=== PATIENT | male | born 1940 | race Caucasian/White ===

== ENCOUNTER 2025-02-18 05:26 | Inpatient (IN) ==
[2025-02-18] MEDS: LIDOCAINE 1%/EPINEPHRINE 1:100,000 50 ML VIAL ONE (05:40)
[2025-02-18 06:07] LABS: Hematocrit (blood only) 26.1 % (42.0-52.0); Hemoglobin 8.5 g/dl (14.0-18.0); Mean Corpuscular Hemoglobin 33.9 pg (25.0-34.0); Mean Corpuscular Hgb Conc 32.6 g/dL (32.0-36.0); RDW Coefficient of Variation 17.2 % (11.5-14.5); RDW Standard Deviation 65.1 fL (36.4-46.3); Red Blood Count 2.51 M/uL (4.70-6.10); White Blood Count 9.15 K/ul (4.8-10.8)
[2025-02-18 06:08] LABS: Basophils # (auto) 0.03 K/uL (0.00-0.20); Basophils % (auto) 0.3 %; Eosinophils # (auto) 0.12 K/uL (0.00-0.50); Eosinophils % (auto) 1.3 %; Immature Granulocytes # (auto) 0.14 K/uL (0.01-0.20); Immature Granulocytes % (auto) 1.5 %; Lymphocytes # (auto) 1.29 K/uL (1.20-3.40); Lymphocytes % (auto) 14.1 %; Mean Platelet Volume 8.8 fL (9.4-12.4); Monocytes # (auto) 1.76 K/uL (0.11-0.59); Monocytes % (auto) 19.2 %; Neutrophils # (auto) 5.81 K/uL (1.40-6.50); Neutrophils % (auto) 63.6 %; Platelet Count 341 K/uL (130-400)
[2025-02-18 06:19] LABS: Albumin Globulin Ratio 1.3 (0.9-2); Albumin Level 3.9 gm/dl (3.4-5.0); Bilirubin,Total 1.1 mg/dl (0.2-1.0); Calcium 9.1 mg/dl (8.6-10.3); Creatinine Clr Calc Pharmacy 37.9 ml/min; Globulin 3.1 gm/dl (2.5-4.0); Potassium 4.2 mmol/L (3.5-5.1)
--- NOTE | 2025-02-18 06:35 | Emergency Department Note ---
Impression & Plan CHI (closed head injury), Complex laceration of scalp, Acute hemorrhage, Left shoulder strain, Hand pain, left, Fall, Anemia, Paroxysmal A-fib ED Provider Note NAME: RON JOHNSON AGE: 85 SEX: Male INFORMANT: Patient and EMS ED PROVIDER(S): Sonu Blevins MD CHIEF COMPLAINT: Trauma PLAN: Disposition: Admitted none Outpatient prescription management: none Referral: MEDICAL DECISION MAKING: Patient presented because of trauma. Trauma alert was initiated. He was evaluated upon arrival. Patient had primary and secondary surveys performed. He was doing relatively well except for pain in the left upper extremity and he had a arterial bleed noted from a 6 centimeter scalp laceration. Patient required bleeding control and laceration repair as documented below. X-ray imaging per my interpretation revealed no evidence of fracture or dislocation in the left shoulder. X-ray imaging of the left hand reveals age-indeterminate injury to trapezium and degenerative changes noted. Patient underwent CT imaging. Patient was found to have dropped his hemoglobin almost 1.5 points from yesterday. Given the description of the bleeding and the pulsatile scalp laceration I suspect that this is acute blood loss. After reviewing the patient's group home chart it turns out that he is on Eliquis and does have history of paroxysmal A-fib. Patient's initial ECG showed sinus rhythm however monitoring revealed the patient to go in and out of A-fib and the patient did have some brief episodes of RVR. He was treated with IV metoprolol 2.5 mg. Patient will require repeat hemoglobin testing and monitoring due to the A-fib as well as the concerning blood loss. No indication for transfusion at this time but this may become necessary. Patient was placed in a wrist splint. CT imaging did not reveal any acute fracture or ICH. Patient was reassessed multiple times and was doing well. Consultation was made with the [facility] hospitalist service, Dr. Lindquist. Case was discussed and diagnostics were reviewed. Patient will be evaluated for admission and further management. Did discuss routine orthopedic follow-up. Patient should have his wound dressed daily with bacitracin and a bandage. Sutures should be removed in 7 days. Care/management discussed with: assurance senior manager insurance, hospitalist Level of care consideration(s): After review of the information above and other included data, I feel the patient requires escalation of care to admission. Triage Nursing notes: reviewed and agree them. Vital Signs: reviewed and remarkable for no significant abnormalities Additional History obtained from: EMS Chronic Medical/Social Conditions affecting care: no dementia ne Prior/ Outside/ External records reviewed: none Differential Diagnosis: Concussion, contusion, fracture, subdural hematoma, epidural hematoma, intraparenchymal hemorrhage, as well as other pathologies. Diagnostics, independently interpreted by me: ECG: Twelve-lead ECG was normal sinus rhythm at [address] elevation or depression. No PVCs. Cardiac Monitoring: Cardiac monitoring ordered by me: The patient was placed on continuous cardiac monitoring and observed. It revealed a normal sinus rhythm at 96 beats per minute without ectopy or evidence of dysrhythmia. Medical decision rules: none Imaging studies: Chest x-ray. Findings: A chest x-ray was performed and revealed no pneumothorax, effusion, infiltrate, pulmonary edema, free air under the diaphragm, or wide mediastinum. Impression: No acute disease. Head CT: A noncontrast CT scan of the head was performed and was negative for tumor, fracture, intracranial hemorrhage, or other acute pathology. I refer you to the EMR for further details. HPI: 85 year old Male arrives for evaluation of a fall. Patient is a new resident at the [facility]. He has dementia. Staff reported that they heard him fall and attended to him right away. He did not appear to have a loss of consciousness. They did note that he had a wound to the top of his head and was bleeding. Pressure dressing was applied due to a significant amount of bleeding. Patient complained of pain in his left shoulder as well as his left hand. EMS was summoned. EMS noted the bleeding was controlled with the dressing. They also appreciated the patient complaining of pain in the left shoulder and left hand. They did not note any issues with neck pain, chest pain, breathing difficulties, abdominal pain or lower extremity problems. Pt denies headache, visual changes, neck pain, chest pain, breathing difficulties, nausea, vomiting, abdominal pain, back pain, lower extremity pain, numbness, weakness, open wounds, active bleeding, or other complaints.. PAST MEDICAL HISTORY: See Below, dementia PAST SURGICAL HISTORY: See Below, SOCIAL HISTORY: See Below, retired HOME MEDICATIONS: See Below ALLERGIES: See Below VITALS: See Below PHYSICAL EXAMINATION: GENERAL: Awake, alert, [id number], in no distress HENT: Normocephalic, 6 cm scalp laceration present on the crown with active pulsatile arterial bleeding. There is a superficial contusion/laceration to the right upper lip. Inner upper lip on the right side has contusion present. Mild nasal swelling without significant deformity or tenderness EYES: Mildly pale conjunctiva. Sclera non-icteric. NECK: Inspection normal. Non-tender. Supple. No nuchal rigidity. FROM. No masses. RESPIRATORY: Clear to auscultation. No wheezes. No rales. Normal respiratory effort. CARDIAC: Normal rate. Normal rhythm. No murmurs. No rubs. Extremities warm and well perfused. Pulses equal. No JVD. GI: Soft, non-distended. No tenderness to palpation. No rebound or guarding. No masses. RECTAL: Deferred. MUSCULOSKELETAL: Both lower extremities are atraumatic. Good range of motion of the hip without tenderness on both sides. Good range of motion at both knees as well. No bony tenderness to palpation of the lower extremities. Chest examination reveals no tenderness. The back is symmetrical on inspection without obvious abnormality. There is no CVA tenderness to palpation. No joint edema. There is tenderness to palpation of the left shoulder without obvious deformity or dislocation. The left elbow is unremarkable. There are some mild swelling of the left fifth digit. Arthritic changes in both hands noted. Patient has good supportability engineer strength bilaterally and is able to supportability engineer without complaints of pain. No edema. No discoloration. NEURO: Demented sensorium. Oriented to person. No focal sensory or motor deficits noted. SKIN: No rash or jaundice noted. PROCEDURES: Location: Scalp Total length: 6 Complexity: Complex with 2 layer closure and arterial bleeding requiring [id number] suture Procedure performed emergently to control active arterial bleeding. At this time, the risks of the procedure are less than the risks of NOT performing the procedure. The skin was prepped with betadine. The target area was anesthetized with 2 ml of 1% lidocaine with epinephrine. Copious irrigation was performed using saline. The skin was re-prepped with betadine and a sterile field set. The wound was explored for foreign bodies and none found. Examination revealed no injury to deep structures. Debridement was not performed. A 5-0 Vicryl xyodwa-tf-[id number] suture was applied in the area of arterial bleeding to achieve hemostasis. The wound edges were approximated using 9, 5 -0 simple interrupted nylon sutures. Hemostasis and excellent approximation was achieved. Antibacterial ointment and a sterile dressing applied. No complications and the patient tolerated the procedure well. CRITICAL CARE: none OBSERVATION NOTE: none Past Med/Surg History Problem List (Updated 02/18/25 @ 07:56 by Sonu Blevins MD) Paroxysmal A-fib (Acute) Anemia (Acute) Fall (Acute) Hand pain, left (Acute) Left shoulder strain (Acute) Acute hemorrhage (Acute) Complex laceration of scalp (Acute) CHI (closed head injury) (Acute) Social History Smoking Status: Never smoker Preferred Language: Divehi Feels Safe at Home: Yes Results & Data (ED) Vital Signs Vital Signs - 24 hr 02/18/25 05:25 02/18/25 05:25 02/18/25 05:28 Temperature 36.6 C 36.6 C 36.6 C Temperature Source Oral Oral Pulse Rate 89 89 Pulse Rate [Left Finger] 89 Pulse Rate from SpO2 Sensor Pulse Rhythm [Left Finger] Regular Pulse Strength [Bilateral Carotid] Normal Pulse Strength [Left Finger] Normal Respiratory Rate 18 18 18 Respiratory Effort / Characteristics Non-Labored Spontaneous Non-Labored Spontaneous Respiratory Depth Normal Normal Respiratory Pattern Regular Regular Blood Pressure 171/86 H 171/86 H Blood Pressure [Left Arm] 171/86 H Blood Pressure Mean 114 Blood Pressure Mean [Left Arm] 114 Blood Pressure Position Lying Blood Pressure Position [Left Arm] Lying Pulse Oximetry 97 97 97 Oxygen Delivery Method Room Air Room Air Room Air Oxygen Flow Rate 0 Sepsis Recent Fever Within 48 Hours Yes Sepsis New/Unexplained Change in Mental Status N/A Sepsis Action Taken by Nursing No Action Required 02/18/25 05:51 02/18/25 06:06 02/18/25 06:18 Temperature Temperature Source Pulse Rate 84 86 Pulse Rate [Left Finger] Pulse Rate from SpO2 Sensor 86 Pulse Rhythm [Left Finger] Pulse Strength [Bilateral Carotid] Pulse Strength [Left Finger] Respiratory Rate 20 Respiratory Effort / Characteristics Respiratory Depth Respiratory Pattern Blood Pressure Blood Pressure [Left Arm] Blood Pressure Mean Blood Pressure Mean [Left Arm] Blood Pressure Position Blood Pressure Position [Left Arm] Pulse Oximetry 97 97 Oxygen Delivery Method Room Air Room Air Oxygen Flow Rate Sepsis Recent Fever Within 48 Hours Sepsis New/Unexplained Change in Mental Status Sepsis Action Taken by Nursing 02/18/25 06:33 02/18/25 06:34 02/18/25 07:00 Temperature 36.6 C 36.8 C Temperature Source Oral Axillary Pulse Rate 86 Pulse Rate [Left Finger] 85 106 H Pulse Rate from SpO2 Sensor 87 Pulse Rhythm [Left Finger] Regular Pulse Strength [Bilateral Carotid] Pulse Strength [Left Finger] Normal Respiratory Rate 18 18 20 Respiratory Effort / Characteristics Non-Labored Spontaneous Non-Labored Spontaneous Respiratory Depth Normal Normal Respiratory Pattern Regular Regular Blood Pressure Blood Pressure [Left Arm] 159/81 H 102/84 Blood Pressure Mean Blood Pressure Mean [Left Arm] 107 90 Blood Pressure Position Blood Pressure Position [Left Arm] Lying Sitting Pulse Oximetry 98 98 97 Oxygen Delivery Method Room Air Room Air Room Air Oxygen Flow Rate Sepsis Recent Fever Within 48 Hours Sepsis New/Unexplained Change in Mental Status Sepsis Action Taken by Nursing 02/18/25 07:34 Temperature Temperature Source Pulse Rate 130 H Pulse Rate [Left Finger] Pulse Rate from SpO2 Sensor Pulse Rhythm [Left Finger] Pulse Strength [Bilateral Carotid] Pulse Strength [Left Finger] Respiratory Rate Respiratory Effort / Characteristics Respiratory Depth Respiratory Pattern Blood Pressure Blood Pressure [Left Arm] Blood Pressure Mean Blood Pressure Mean [Left Arm] Blood Pressure Position Blood Pressure Position [Left Arm] Pulse Oximetry Oxygen Delivery Method Oxygen Flow Rate Sepsis Recent Fever Within 48 Hours Sepsis New/Unexplained Change in Mental Status Sepsis Action Taken by Nursing Laboratory Data 02/18/25 05:44 02/18/25 05:44 Lab Results 02/18/25 02/18/25 Range/Units 05:44 05:45 WBC 9.15 (4.8-10.8) K/ul RBC 2.51 L (4.70-6.10) M/uL Hgb 8.5 L (14.0-18.0) g/dl Hct 26.1 L (42.0-52.0) % MCV 104.0 H (80.0-100.0) fL MCH 33.9 (25.0-34.0) pg MCHC 32.6 (32.0-36.0) g/dL RDW Std Deviation 65.1 H (36.4-46.3) fL RDW Coeff of Miguel Ángel 17.2 H (11.5-14.5) % Plt Count 341 (130-400) K/uL MPV 8.8 L (9.4-12.4) fL Immature Gran % (Auto) 1.5 % Neut % (Auto) 63.6 % Lymph % (Auto) 14.1 % Williamson % (Auto) 19.2 % Eos % (Auto) 1.3 % Baso % (Auto) 0.3 % Neut # (Auto) 5.81 (1.40-6.50) K/uL Lymph # (Auto) 1.29 (1.20-3.40) K/uL Williamson # (Auto) 1.76 H (0.11-0.59) K/uL Eos # (Auto) 0.12 (0.00-0.50) K/uL Baso # (Auto) 0.03 (0.00-0.20) K/uL Immature Gran # (Auto) 0.14 (0.01-0.20) K/uL Sodium 142 (136-145) mmol/L Potassium 4.2 (3.5-5.1) mmol/L Chloride 105 (98-107) mmol/L Carbon Dioxide 30 (21-32) mmol/L Anion Gap 7 (3-11) BUN 33 H (6-23) mg/dl Creatinine 1.50 H (0.6-1.4) mg/dl Est Cr Clr Drug Dosing 37.9 ml/min eGFR 45.62 BUN/Creatinine Ratio 22.0 H (10-20) Glucose 112 H (70-99(Fasting)) mg/dl Calcium 9.1 (8.6-10.3) mg/dl Total Bilirubin 1.1 H (0.2-1.0) mg/dl AST 67 H (13-39) U/L ALT 30 (7-52) U/L Alkaline Phosphatase 109 H (34-104) U/L Total Protein 7.0 (6.0-8.3) gm/dl Albumin 3.9 (3.4-5.0) gm/dl Globulin 3.1 (2.5-4.0) gm/dl Albumin/Globulin Ratio 1.3 (0.9-2) Blood Type O Positive Antibody Screen NEGATIVE Administered Medications Discontinued Medications Lidocaine/Epinephrine (Lidocaine 1%/Epinephrine 1:100,000 50 Ml Vial) Confirm Administered Dose 10 ml .ROUTE .[employer]-MED ONE Stop: 02/18/25 05:39 Last Admin: 02/18/25 05:40 Dose: 10 ml Documented By: Imaging Data Radiologist's Impression: Chest X-Ray 02/18/25 05:52 EXAM: XR chest 1V portable CLINICAL HISTORY: fall, trauma TECHNIQUE: Radiograph of chest was acquired. COMPARISON: none FINDINGS: A small pleural based radio-opacity seen near right cotophrenic angle. The lungs are clear and well-expanded with no pulmonary infiltrate or pleural effusion. The cardiomediastinal silhouette is within normal limits. No acute osseous abnormality. IMPRESSION: 1. No acute cardiopulmonary disease. 2. A small pleural based radio-opacity seen near right cotophrenic angle. Possible pleural nodule vs small empyema vs soft tissue overlap. Electronically signed by Shemar Paulino 02-18-2025 07:42 AM Hand X-Ray 02/18/25 05:52 EXAM: XR hand LT min 3V routine CLINICAL HISTORY: fall, trauma left hand pain TECHNIQUE: Radiograph of left hand was acquired. COMPARISON: none FINDINGS: Age indeterminate fracture of traepzium bone with sclerosis. A small lytic lesion in proximal end of metacarpal bone. Rest carpal bones are well aligned. The soft tissues are unremarkable. The joint spaces are well-preserved. IMPRESSION: 1. Age indeterminate fracture of traepzium bone with sclerosis. 2. A small lytic lesion in proximal end of metacarpal bone, likely degenerative subchondral cyst. Electronically signed by Shemar Paulino 02-18-2025 07:39 AM Shoulder X-Ray 02/18/25 05:52 EXAM: XR shoulder LT min 2V routine CLINICAL HISTORY: fall, trauma left shoulder pain TECHNIQUE: Radiograph of left shoulder was acquired. COMPARISON: none FINDINGS: There is no evidence of acute fracture, dislocation or osseous lesion. The acromioclavicular joint space is preserved. The glenohumeral joint space is preserved. The adjacent soft tissues appear unremarkable, with no evidence of joint effusion. IMPRESSION: 1. No acute osseous or soft tissue abnormality. Electronically signed by Shemar Paulino 02-18-2025 07:[address] 02/18/25 06:15 EXAM: CT cervical spine wo con CLINICAL HISTORY: fall, CHI TECHNIQUE: Computed tomography of the cervical spine performed without intravenous contrast. Contiguous axial images were obtained from the skull base to T2, with sagittal and coronal reformatted images reconstructed from the axial data. CT scan was performed according to ALARA (as low as reasonable achievable). COMPARISON: None. FINDINGS: Loss of cervical lordosis - suggest possibility of muscle spasm/positional. Degenerative changes involving cervical spine in the form of multilevel marginal osteophytes, disc space reduction and facetal arthrosis. Post laminectomy status is noted at C3 and C4 vertebra. Fixation screws and plates are seen in situ without obvious loosening Cervical vertebral bodies are normal in height and alignment, with no evidence of fracture or subluxation. Lateral masses of C1 are symmetrical, and the dens is intact. Prevertebral soft tissues are not widened. The remaining suprahyoid and infrahyoid soft tissues in the neck are unremarkable. Posterior uncovertebral arthrosis is noted at C4-C5, C5-C6 and C6-C7 level which indenting ventral thecal sac and causes bilateral neuroforaminal narrowing. Thyroid gland appears unremarkable. IMPRESSION: 1.No acute fracture or subluxation in the cervical spine. 2.Cervical spondylosis. Electronically signed by Shemar Paulino 02-18-2025 07:[address] 02/18/25 06:15 EXAM: CT facial bones wo con CLINICAL HISTORY: fall TECHNIQUE: Computed tomography of the orbits/face was performed without intravenous contrast. Contiguous axial images were obtained. Reformatted coronal and sagittal images were also reviewed. CT scan was performed according to ALARA (as low as reasonable achievable). COMPARISON: none. FINDINGS: No acute facial fractures. Mild left maxillary sinusitis. Rest ofparanasal sinuses and mastoid air cells are clear. The globes, optic nerves, extraocular muscles and retro-orbital fat are grossly unremarkable. Reformatted imaging demonstrates intact roof and floor of the orbits. Included portions of the mandible are intact. The included intracranial substances and airway are unremarkable. IMPRESSION: 1. No acute facial fractures. 2. Mild left maxillary sinusitis. Electronically signed by Shemar Paulino 02-18-2025 07:[address] 02/18/25 06:15 EXAM: CT head/brain wo con CLINICAL HISTORY: trauma, fall TECHNIQUE: Multiple axial images are obtained from the skull base to the vertex without contrast. CT scan was performed according to ALARA (as low as reasonable achievable). COMPARISON: None. FINDINGS: There is cerebral atrophy. No evidence of space occupying lesion, hemorrhage, edema, mass effect, midline shift, extra axial collection, or hydrocephalus is noted. Basal cisterns are symmetric and normal in size and configuration. There are scattered periventricular hypodensities as can be seen with chronic microvascular ischemic changes. The gates-white matter differentiation is preserved. Small retention cyst is noted in left maxillary sinus. Rest of paranasal sinuses and mastoid air cells are well aerated. Orbital contents are within normal limits. Bony structures are intact. IMPRESSION: 1. No evidence of acute intracranial abnormality is demonstrated. 2. Chronic microvascular ischemic changes. 3. Cerebral atrophy. Electronically signed by Shemar Paulino 02-18-2025 07:45 AM Discharge Plan Visit Data Chief Complaint: Trauma Stated Complaint: Fall, Facial Injuries ED Provider: Sonu Blevins Discharge Problem: CHI (closed head injury), Complex laceration of scalp, Acute hemorrhage, Left shoulder strain, Hand pain, left, Fall, Anemia, Paroxysmal A-fib Patient Disposition: Admitted As Inpatient Condition: Fair Forms Stand Alone Forms: [facility] Referrals Referrals: Alexander Mares [Primary Care Provider] -
--- NOTE | 2025-02-18 07:40 | XRay Report ---
EXAM: XR hand LT min 3V routine CLINICAL HISTORY: fall, trauma left hand pain TECHNIQUE: Radiograph of left hand was acquired. COMPARISON: none FINDINGS: Age indeterminate fracture of traepzium bone with sclerosis. A small lytic lesion in proximal end of metacarpal bone. Rest carpal bones are well aligned. The soft tissues are unremarkable. The joint spaces are well-preserved. IMPRESSION: 1. Age indeterminate fracture of traepzium bone with sclerosis. 2. A small lytic lesion in proximal end of metacarpal bone, likely degenerative subchondral cyst. Electronically signed by Shemar Paulino 02-18-2025 07:39 AM
--- NOTE | 2025-02-18 07:41 | XRay Report ---
EXAM: XR shoulder LT min 2V routine CLINICAL HISTORY: fall, trauma left shoulder pain TECHNIQUE: Radiograph of left shoulder was acquired. COMPARISON: none FINDINGS: There is no evidence of acute fracture, dislocation or osseous lesion. The acromioclavicular joint space is preserved. The glenohumeral joint space is preserved. The adjacent soft tissues appear unremarkable, with no evidence of joint effusion. IMPRESSION: 1. No acute osseous or soft tissue abnormality. Electronically signed by Shemar Pualino 02-18-2025 07:41 AM
--- NOTE | 2025-02-18 07:43 | XRay Report ---
EXAM: XR chest 1V portable CLINICAL HISTORY: fall, trauma TECHNIQUE: Radiograph of chest was acquired. COMPARISON: none FINDINGS: A small pleural based radio-opacity seen near right cotophrenic angle. The lungs are clear and well-expanded with no pulmonary infiltrate or pleural effusion. The cardiomediastinal silhouette is within normal limits. No acute osseous abnormality. IMPRESSION: 1. No acute cardiopulmonary disease. 2. A small pleural based radio-opacity seen near right cotophrenic angle. Possible pleural nodule vs small empyema vs soft tissue overlap. Electronically signed by Shemar Paulino 02-18-2025 07:42 AM
--- NOTE | 2025-02-18 07:43 | CT Scan Report ---
EXAM: CT cervical spine wo con CLINICAL HISTORY: fall, CHI TECHNIQUE: Computed tomography of the cervical spine performed without intravenous contrast. Contiguous axial images were obtained from the skull base to T2, with sagittal and coronal reformatted images reconstructed from the axial data. CT scan was performed according to ALARA (as low as reasonable achievable). COMPARISON: None. FINDINGS: Loss of cervical lordosis - suggest possibility of muscle spasm/positional. Degenerative changes involving cervical spine in the form of multilevel marginal osteophytes, disc space reduction and facetal arthrosis. Post laminectomy status is noted at C3 and C4 vertebra. Fixation screws and plates are seen in situ without obvious loosening Cervical vertebral bodies are normal in height and alignment, with no evidence of fracture or subluxation. Lateral masses of C1 are symmetrical, and the dens is intact. Prevertebral soft tissues are not widened. The remaining suprahyoid and infrahyoid soft tissues in the neck are unremarkable. Posterior uncovertebral arthrosis is noted at C4-C5, C5-C6 and C6-C7 level which indenting ventral thecal sac and causes bilateral neuroforaminal narrowing. Thyroid gland appears unremarkable. IMPRESSION: 1.No acute fracture or subluxation in the cervical spine. 2.Cervical spondylosis. Electronically signed by Shemar Paulino 02-18-2025 07:43 AM
--- NOTE | 2025-02-18 07:44 | CT Scan Report ---
EXAM: CT facial bones wo con CLINICAL HISTORY: fall TECHNIQUE: Computed tomography of the orbits/face was performed without intravenous contrast. Contiguous axial images were obtained. Reformatted coronal and sagittal images were also reviewed. CT scan was performed according to ALARA (as low as reasonable achievable). COMPARISON: none. FINDINGS: No acute facial fractures. Mild left maxillary sinusitis. Rest ofparanasal sinuses and mastoid air cells are clear. The globes, optic nerves, extraocular muscles and retro-orbital fat are grossly unremarkable. Reformatted imaging demonstrates intact roof and floor of the orbits. Included portions of the mandible are intact. The included intracranial substances and airway are unremarkable. IMPRESSION: 1. No acute facial fractures. 2. Mild left maxillary sinusitis. Electronically signed by Shemar Paulino 02-18-2025 07:44 AM
--- NOTE | 2025-02-18 07:46 | CT Scan Report ---
EXAM: CT head/brain wo con CLINICAL HISTORY: trauma, fall TECHNIQUE: Multiple axial images are obtained from the skull base to the vertex without contrast. CT scan was performed according to ALARA (as low as reasonable achievable). COMPARISON: None. FINDINGS: There is cerebral atrophy. No evidence of space occupying lesion, hemorrhage, edema, mass effect, midline shift, extra axial collection, or hydrocephalus is noted. Basal cisterns are symmetric and normal in size and configuration. There are scattered periventricular hypodensities as can be seen with chronic microvascular ischemic changes. The gates-white matter differentiation is preserved. Small retention cyst is noted in left maxillary sinus. Rest of paranasal sinuses and mastoid air cells are well aerated. Orbital contents are within normal limits. Bony structures are intact. IMPRESSION: 1. No evidence of acute intracranial abnormality is demonstrated. 2. Chronic microvascular ischemic changes. 3. Cerebral atrophy. Electronically signed by Shemar Paulino 02-18-2025 07:45 AM
[2025-02-18] MEDS: METOPROLOL TARTRATE 1 MG/ML VIAL IV STA (08:04)
[2025-02-18 08:21] LABS: Hematocrit (blood only) 26.5 % (42.0-52.0); Hemoglobin 8.6 g/dl (14.0-18.0)
--- NOTE | 2025-02-18 08:41 | CT Scan Report ---
CT chest diagnostic wo con CT DOSE: 788.82 mGy.cm CLINICAL HISTORY: 85 years-old Male with fluid vs nodule right side on CXR. Acute shortness of breat h TECHNIQUE: Multiaxial CT images of the chest were performed without contrast. A dose lowering techni que was utilized adhering to the principles of ALARA. COMPARISON: Chest radiograph same day FINDINGS: No thyroid nodule identified. There are a few borderline-enlarged mediastinal lymph nodes. Heart is upper limits of size. Decreased attenuation of the cardiac blood poles suggestive of hernia. Extensive coronary artery calcifications. No thoracic aortic aneurysm. Trace pleural effusions. Mild intralobular septal thickening with subsegmental deep bibasilar atelectasis. No pneumothorax. Calcif ied granuloma left lower lobe. Mild linear right basilar atelectasis versus scarring on image 172. No acute upper abdominal abnormality. Moderate colonic fecal retention. Osteoarthritis of the shoulde rs. Complex right glenohumeral joint effusion, likely on a degenerative basis. Subacute to chronic no ndisplaced posterior left 10th rib fracture. Likely chronic compression deformity of the T7 vertebral body without retropulsion. 25% superior endplate compression deformity at T12 without retropulsion a ppears acute. Additionally, there is an acute mildly comminuted nondisplaced left T12 transverse proc ess fracture. The pedicles and facets appear intact. IMPRESSION: 1. Cardiomegaly with suggestion of mild interstitial pulmonary edema. 2. Trace pleural effusions with mild right basilar subsegmental atelectasis. 3. Mild T12 compression deformity without retropulsion, likely. 4. Acute mildly comminuted nondisplaced fractures of the left T12 transverse process. 5. Nondisplaced subacute to chronic appearing fracture of the posterior left 10th rib. ACT 112: Negative or not required by law. Electronically signed by: Ayo Odonnell M.D. 02/18/2025 8:39 AM
--- NOTE | 2025-02-18 09:17 | History & Physical Report ---
Date of Service February 18, 2025 Assessment & Plan (1) Paroxysmal A-fib: (2) Anemia: (3) Fall: (4) Hand pain, left: (5) Left shoulder strain: (6) Complex laceration of scalp: (7) CHI (closed head injury): Plan The patient is a 85-year-old male who presented to the ED on 02/18/2025 s/p fall found to be in rapid A-fib with scalp laceration, T12 compression fracture, left wrist fracture, left 10th rib fracture Mechanical fall Scalp lacerationCHI Acute blood loss anemia Poor historian, reports tripping this morning, no LOC Head CT negative, scalp laceration sutured in ED Sutures will need to be removed in 7-10 days, bleeding controlled Hemoglobin stable, continue to monitor, hemodynamically stable Rapid A-fib: Intermittently in rapid A-fib, improved with IV Lopressor 2.5 Telemetry monitoring, restart home metoprolol, IV Lopressor as needed Hold Eliquis for now CHF: Continue Lasix, some mild lower extremity edema, appears euvolemic T12 compression fracture: Noted on chest CT, Ortho consulted, await further recommendations PT/OT when cleared by Ortho, asymptomatic on exam Left wrist fracture: Wrist brace ordered, Ortho consulted Left 10th rib fracture: Incentive spirometry, lidocaine patch, Tylenol for pain Hx dementia with behavioral disturbances: Continue home medications including Seroquel/Depakote/Zyprexa A total of 60 minutes was spent on chart review/facilitating plan of care/discussion with consultants/reviewing diagnostic data Full code DVT prophylaxis: Eliquis on hold with fall/laceration History of Present Illness Chief Complaint: Fall, scalp laceration Primary Care Provider: Alexander Mares The patient is a 85-year-old male with a past medical history of dementia, vitamin B12 deficiency, atrial fibrillation on Eliquis, CHF, constipation who presents to the ED on 02/18/2025 s/p fall. Patient is a poor historian but re ports tripping over something this morning. He is from a dementia unit and the staff found him face down on the floor. Unknown period of time. Patient denies any loss of consciousness. On arrival to the ED, patient had a scalp laceration that was sutured in the ER, had some excess bleeding which has now improved. He was also found to be in rapid A-fib in the 120s intermittently. On exam, the patient denies any chest pain/shortness of breath. Denies any recent nausea/vomiting/diarrhea. Denies any abdominal pain. Reports his pain is controlled. On arrival to the ED, labs are remarkable for hemoglobin 8.6, BUN 33, creatinine 1.5baseline, total bilirubin 1.1, AST 67, alk phos 109 Chest x-ray negative Left hand x-ray showed: 1. Age indeterminate fracture of traepzium bone with sclerosis. 2. A small lytic lesion in proximal end of metacarpal bone, likely degenerative subchondral cyst. Cervical spine CT negative shoulder x-ray negative Face CT negative Head CT negative Chest CT showed: 1. Cardiomegaly with suggestion of mild interstitial pulmonary edema. 2. Trace pleural effusions with mild right basilar subsegmental atelectasis. 3. Mild T12 compression deformity without retropulsion, likely. 4. Acute mildly comminuted nondisplaced fractures of the left T12 transverse process. 5. Nondisplaced subacute to chronic appearing fracture of the posterior left 10th rib. The patient will be admitted for observation for injuries in monitoring of hemoglobin. His Eliquis and aspirin will be placed on hold Allergies Allergy/AdvReac Type Severity Reaction Status Date / Time chlorhexidine Allergy Unknown Verified 02/18/25 09:06 Home Medications Medication Instructions Recorded Confirmed Type acetaminophen 650 mg 650 mg PO Q4H PRN Pain 02/18/25 02/18/25 History tablet,extended release apixaban 5 mg tablet (Eliquis) 5 mg PO BID 02/18/25 02/18/25 History aspirin 81 mg tablet,delayed 81 mg PO QAM 02/18/25 02/18/25 History release bisacodyl 10 mg rectal suppository 10 mg FL PM PRN Constipation 02/18/25 02/18/25 History (Dulcolax (bisacodyl)) cholecalciferol (vitamin D3) 25 25 mcg PO QAM 02/18/25 02/18/25 History mcg (1,000 unit) tablet (Vitamin D3) citalopram 20 mg tablet (Celexa) 20 mg PO QAM 02/18/25 02/18/25 History cranberry fruit 450 mg tablet 450 mg PO QAM 02/18/25 02/18/25 History (cranberry) cyanocobalamin (vitamin B-12) 1,000 mcg PO QAM 02/18/25 02/18/25 History 1,000 mcg tablet (Vitamin B-12) diclofenac sodium 1 % topical gel 2 g topical Q8H PRN Pain 02/18/25 02/18/25 History divalproex 125 mg tablet,delayed 250 mg PO BID 02/18/25 02/18/25 History release folic acid 1 mg tablet 1 mg PO QAM 02/18/25 02/18/25 History furosemide 20 mg tablet (Lasix) 60 mg PO QAM 02/18/25 02/18/25 History gabapentin 100 mg capsule 100 mg PO BID 02/18/25 02/18/25 History hydrocortisone-pramoxine 2.5 %-1 % 1 applic FL BID 02/18/25 02/18/25 History rectal cream (Analpram-HC) latanoprost 0.005 % eye drops, 1 drp ophthalmic (eye) PM 02/18/25 02/18/25 History emulsion magnesium hydroxide 400 mg/5 mL 2,400 mg PO QAM PRN Constipation 02/18/25 02/18/25 History oral suspension (Milk of Magnesia) magnesium oxide 400 mg PO BID 02/18/25 02/18/25 History metoprolol tartrate 25 mg tablet 25 mg PO QAM 02/18/25 02/18/25 History mv-mn-folic 200 mcg-vit K 15 1 cap PO BID 02/18/25 02/18/25 History mcg-lutein 5 mg-zeaxanthin 1 mg capsule (PreserVision AREDS 2 Plus Multivit) olanzapine 5 mg tablet 5 mg PO HS 02/18/25 02/18/25 History polyethylene glycol 3350 17 17 g PO BID 02/18/25 02/18/25 History gram/dose oral powder (Miralax) potassium chloride 10 mEq 10 meq PO BID 02/18/25 02/18/25 History tablet,extended release quetiapine 200 mg tablet (Seroquel) 200 mg PO HS 02/18/25 02/18/25 History quetiapine 25 mg tablet (Seroquel) 25 mg PO BIDWMEAL 02/18/25 02/18/25 History sennosides 8.6 mg tablet (senna) 8.6 mg PO BID 02/18/25 02/18/25 History sodium chloride 0.65 % nasal spray 1 spray intranasal Q6H PRN Nasal 02/18/25 02/18/25 History aerosol Congestion sodium phosphates 19 gram-7 118 ml FL QAM PRN Constipation 02/18/25 02/18/25 History gram/118 mL enema (Enema) trazodone 50 mg tablet 50 mg PO HS 02/18/25 02/18/25 History Past Med/Surg History Problem List (Updated 02/18/25 @ 11:07 by Hector Parker MD) Thoracic compression fracture Paroxysmal A-fib (Acute) Anemia (Acute) Fall (Acute) Hand pain, left (Acute) Left shoulder strain (Acute) Acute hemorrhage (Acute) Complex laceration of scalp (Acute) CHI (closed head injury) (Acute) Social History Smoking Status: Never smoker Hx Alcohol Use: No Hx Substance Use: No Preferred Language: Turkmen Glued Wood Tester Required: No Beliefs That Will Affect Care: None Current Living Situation: Personal Care Facility Feels Safe at Home: Yes Safety Concerns: Feels Safe At This Time Assistive Devices: Cane Review of Systems Review of Systems: All systems reviewed & are unremarkable except as noted in HPI & below Physical Exam 2 Constitutional: WD/WN, vitals as above Eyes: PERRL, conjunctivae normal, anicteric sclerae (facial laceration, sutured, no active bleeding; lip abrasion ) ENMT: external ear and nose normal, oropharynx normal (facial laceration, sutured, no active bleeding; lip abrasion ) Neck: trachea midline, no thyromegaly Respiratory: normal respiratory effort, lungs clear to auscultation Cardiovascular: RRR, no murmur, no edema (+1 LE edema pitting ) Gastrointestinal (Abdomen): normal bowel sounds, soft, nontender, no hepatosplenomegaly Musculoskeletal: no cyanosis or clubbing, extremities motor strength 5/5 Skin: no rashes, warm and dry Neurologic: PERRL, EOMI, accommodation nl, no face palsy, no dysarthria Lymphatic: no cervical or axillary lymphadenopathy Results & Data Results & Data Vital Signs (Past 12 Hours) Vital Signs Temp Pulse Pulse Resp BP BP Pulse Ox 02/18/25 08:29 95 H 126/87 02/18/25 08:04 123 H 148/87 H 02/18/25 08:00 147 H 19 148/87 H 96 02/18/25 07:34 130 H 02/18/25 07:00 36.8 C 106 H 20 102/84 97 02/18/25 06:34 36.6 C 85 18 159/81 H 98 02/18/25 06:33 86 18 98 02/18/25 06:18 86 20 97 02/18/25 06:06 84 02/18/25 05:51 97 02/18/25 05:28 36.6 C 89 18 171/86 H 97 02/18/25 05:25 36.6 C 89 18 171/86 H 97 02/18/25 05:25 36.6 C 89 18 171/86 H 97 O2 Del Method O2 Flow Rate 02/18/25 08:29 02/18/25 08:04 02/18/25 08:00 Room Air 02/18/25 07:34 02/18/25 07:00 Room Air 02/18/25 06:34 Room Air 02/18/25 06:33 Room Air 02/18/25 06:18 Room Air 02/18/25 06:06 02/18/25 05:51 Room Air 02/18/25 05:28 Room Air 02/18/25 05:25 Room Air 02/18/25 05:25 Room Air 0 Diagnostic Findings Laboratory Results WBC 9.15 K/ul (4.8-10.8) 02/18/25 05:44 RBC 2.51 M/uL (4.70-6.10) L 02/18/25 05:44 Hgb 8.6 g/dl (14.0-18.0) L 02/18/25 08:05 Hct 26.5 % (42.0-52.0) L 02/18/25 08:05 MCV 104.0 fL (80.0-100.0) H 02/18/25 05:44 MCH 33.9 pg (25.0-34.0) 02/18/25 05:44 MCHC 32.6 g/dL (32.0-36.0) 02/18/25 05:44 RDW Std Deviation 65.1 fL (36.4-46.3) H 02/18/25 05:44 RDW Coeff of Miguel Ángel 17.2 % (11.5-14.5) H 02/18/25 05:44 Plt Count 341 K/uL (130-400) 02/18/25 05:44 MPV 8.8 fL (9.4-12.4) L 02/18/25 05:44 Immature Gran % (Auto) 1.5 % 02/18/25 05:44 Neut % (Auto) 63.6 % 02/18/25 05:44 Lymph % (Auto) 14.1 % 02/18/25 05:44 Mower % (Auto) 19.2 % 02/18/25 05:44 Eos % (Auto) 1.3 % 02/18/25 05:44 Baso % (Auto) 0.3 % 02/18/25 05:44 Neut # (Auto) 5.81 K/uL (1.40-6.50) 02/18/25 05:44 Lymph # (Auto) 1.29 K/uL (1.20-3.40) 02/18/25 05:44 Mower # (Auto) 1.76 K/uL (0.11-0.59) H 02/18/25 05:44 Eos # (Auto) 0.12 K/uL (0.00-0.50) 02/18/25 05:44 Baso # (Auto) 0.03 K/uL (0.00-0.20) 02/18/25 05:44 Immature Gran # (Auto) 0.14 K/uL (0.01-0.20) 02/18/25 05:44 Sodium 142 mmol/L (136-145) 02/18/25 05:44 Potassium 4.2 mmol/L (3.5-5.1) 02/18/25 05:44 Chloride 105 mmol/L (98-107) 02/18/25 05:44 Carbon Dioxide 30 mmol/L (21-32) 02/18/25 05:44 Anion Gap 7 (3-11) 02/18/25 05:44 BUN 33 mg/dl (6-23) H 02/18/25 05:44 Creatinine 1.50 mg/dl (0.6-1.4) H 02/18/25 05:44 Est Cr Clr Drug Dosing 37.9 ml/min 02/18/25 05:44 eGFR 45.62 02/18/25 05:44 BUN/Creatinine Ratio 22.0 (10-20) H 02/18/25 05:44 Glucose 112 mg/dl (70-99(Fasting)) H 02/18/25 05:44 Calcium 9.1 mg/dl (8.6-10.3) 02/18/25 05:44 Magnesium 2.3 mg/dl (1.7-2.4) 02/18/25 08:05 Total Bilirubin 1.1 mg/dl (0.2-1.0) H 02/18/25 05:44 AST 67 U/L (13-39) H 02/18/25 05:44 ALT 30 U/L (7-52) 02/18/25 05:44 Alkaline Phosphatase 109 U/L (34-104) H 02/18/25 05:44 Total Protein 7.0 gm/dl (6.0-8.3) 02/18/25 05:44 Albumin 3.9 gm/dl (3.4-5.0) 02/18/25 05:44 Globulin 3.1 gm/dl (2.5-4.0) 02/18/25 05:44 Albumin/Globulin Ratio 1.3 (0.9-2) 02/18/25 05:44 Blood Type O Positive 02/18/25 05:45 Antibody Screen NEGATIVE 02/18/25 05:45 Impressions Chest X-Ray 02/18/25 05:52 EXAM: XR chest 1V portable CLINICAL HISTORY: fall, trauma TECHNIQUE: Radiograph of chest was acquired. COMPARISON: none FINDINGS: A small pleural based radio-opacity seen near right cotophrenic angle. The lungs are clear and well-expanded with no pulmonary infiltrate or pleural effusion. The cardiomediastinal silhouette is within normal limits. No acute osseous abnormality. IMPRESSION: 1. No acute cardiopulmonary disease. 2. A small pleural based radio-opacity seen near right cotophrenic angle. Possible pleural nodule vs small empyema vs soft tissue overlap. Electronically signed by Shemar Paulino 02-18-2025 07:42 AM Hand X-Ray 02/18/25 05:52 EXAM: XR hand LT min 3V routine CLINICAL HISTORY: fall, trauma left hand pain TECHNIQUE: Radiograph of left hand was acquired. COMPARISON: none FINDINGS: Age indeterminate fracture of traepzium bone with sclerosis. A small lytic lesion in proximal end of metacarpal bone. Rest carpal bones are well aligned. The soft tissues are unremarkable. The joint spaces are well-preserved. IMPRESSION: 1. Age indeterminate fracture of traepzium bone with sclerosis. 2. A small lytic lesion in proximal end of metacarpal bone, likely degenerative subchondral cyst. Electronically signed by Shemar Paulino 02-18-2025 07:39 AM Shoulder X-Ray 02/18/25 05:52 EXAM: XR shoulder LT min 2V routine CLINICAL HISTORY: fall, trauma left shoulder pain TECHNIQUE: Radiograph of left shoulder was acquired. COMPARISON: none FINDINGS: There is no evidence of acute fracture, dislocation or osseous lesion. The acromioclavicular joint space is preserved. The glenohumeral joint space is preserved. The adjacent soft tissues appear unremarkable, with no evidence of joint effusion. IMPRESSION: 1. No acute osseous or soft tissue abnormality. Electronically signed by Shemar Paulino 02-18-2025 07:[address] 02/18/25 06:15 EXAM: CT cervical spine wo con CLINICAL HISTORY: fall, CHI TECHNIQUE: Computed tomography of the cervical spine performed without intravenous contrast. Contiguous axial images were obtained from the skull base to T2, with sagittal and coronal reformatted images reconstructed from the axial data. CT scan was performed according to ALARA (as low as reasonable achievable). COMPARISON: None. FINDINGS: Loss of cervical lordosis - suggest possibility of muscle spasm/positional. Degenerative changes involving cervical spine in the form of multilevel marginal osteophytes, disc space reduction and facetal arthrosis. Post laminectomy status is noted at C3 and C4 vertebra. Fixation screws and plates are seen in situ without obvious loosening Cervical vertebral bodies are normal in height and alignment, with no evidence of fracture or subluxation. Lateral masses of C1 are symmetrical, and the dens is intact. Prevertebral soft tissues are not widened. The remaining suprahyoid and infrahyoid soft tissues in the neck are unremarkable. Posterior uncovertebral arthrosis is noted at C4-C5, C5-C6 and C6-C7 level which indenting ventral thecal sac and causes bilateral neuroforaminal narrowing. Thyroid gland appears unremarkable. IMPRESSION: 1.No acute fracture or subluxation in the cervical spine. 2.Cervical spondylosis. Electronically signed by Shemar Paulino 02-18-2025 07:[address] 02/18/25 06:15 EXAM: CT facial bones wo con CLINICAL HISTORY: fall TECHNIQUE: Computed tomography of the orbits/face was performed without intravenous contrast. Contiguous axial images were obtained. Reformatted coronal and sagittal images were also reviewed. CT scan was performed according to ALARA (as low as reasonable achievable). COMPARISON: none. FINDINGS: No acute facial fractures. Mild left maxillary sinusitis. Rest ofparanasal sinuses and mastoid air cells are clear. The globes, optic nerves, extraocular muscles and retro-orbital fat are grossly unremarkable. Reformatted imaging demonstrates intact roof and floor of the orbits. Included portions of the mandible are intact. The included intracranial substances and airway are unremarkable. IMPRESSION: 1. No acute facial fractures. 2. Mild left maxillary sinusitis. Electronically signed by Shemar Paulino 02-18-2025 07:[address] 02/18/25 06:15 EXAM: CT head/brain wo con CLINICAL HISTORY: trauma, fall TECHNIQUE: Multiple axial images are obtained from the skull base to the vertex without contrast. CT scan was performed according to ALARA (as low as reasonable achievable). COMPARISON: None. FINDINGS: There is cerebral atrophy. No evidence of space occupying lesion, hemorrhage, edema, mass effect, midline shift, extra axial collection, or hydrocephalus is noted. Basal cisterns are symmetric and normal in size and configuration. There are scattered periventricular hypodensities as can be seen with chronic microvascular ischemic changes. The gates-white matter differentiation is preserved. Small retention cyst is noted in left maxillary sinus. Rest of paranasal sinuses and mastoid air cells are well aerated. Orbital contents are within normal limits. Bony structures are intact. IMPRESSION: 1. No evidence of acute intracranial abnormality is demonstrated. 2. Chronic microvascular ischemic changes. 3. Cerebral atrophy. Electronically signed by Shemar Paulino 02-18-2025 07:[address] 02/18/25 07:47 CT chest diagnostic wo con CT DOSE: 788.82 mGy.cm CLINICAL HISTORY: 85 years-old Male with fluid vs nodule right side on CXR. Acute shortness of breath TECHNIQUE: Multiaxial CT images of the chest were performed without contrast. A dose lowering technique was utilized adhering to the principles of ALARA. COMPARISON: Chest radiograph same day FINDINGS: No thyroid nodule identified. There are a few borderline-enlarged mediastinal lymph nodes. Heart is upper limits of size. Decreased attenuation of the cardiac blood poles suggestive of hernia. Extensive coronary artery calcifications. No thoracic aortic aneurysm. Trace pleural effusions. Mild intralobular septal thickening with subsegmental deep bibasilar atelectasis. No pneumothorax. Calcified granuloma left lower lobe. Mild linear right basilar atelectasis versus scarring on image 172. No acute upper abdominal abnormality. Moderate colonic fecal retention. Osteoar thritis of the shoulders. Complex right glenohumeral joint effusion, likely on a degenerative basis. Subacute to chronic nondisplaced posterior left 10th rib fracture. Likely chronic compression deformity of the T7 vertebral body without retropulsion. 25% superior endplate compression deformity at T12 without retropulsion appears acute. Additionally, there is an acute mildly comminuted nondisplaced left T12 transverse process fracture. The pedicles and facets appear intact. IMPRESSION: 1. Cardiomegaly with suggestion of mild interstitial pulmonary edema. 2. Trace pleural effusions with mild right basilar subsegmental atelectasis. 3. Mild T12 compression deformity without retropulsion, likely. 4. Acute mildly comminuted nondisplaced fractures of the left T12 transverse process. 5. Nondisplaced subacute to chronic appearing fracture of the posterior left 10th rib. ACT 112: Negative or not required by law. Electronically signed by: Ayo Odonnell M.D. 02/18/2025 8:39 AM Supervising Physician Co-Signing Physician Notes 85-year-old gentleman with PMH of dementia, vitamin B12 deficiency, atrial fibrillation on Eliquis, CHF, constipation presented to the ED from [facility]. Apparently was getting out of bed without help which he was not supposed to do and he fell and hit his head/he was bleeding/patient is on blood thinner. Patient is poor historian but denies pain or sore throat or cough. He was also noted to be in rapid A-fib in the ED. He received sutures to laceration in the scalp at ED, need to be removed in about 7 to 10 days. He has history of A-fib, will continue with home metoprolol, currently rate under control, hold aspirin and Eliquis for next few days. He is also noted to have T12 fracture, orthospine consulted. Orthopedic consulted for left wrist fracture. On exam: GENERAL: Alert and oriented x self and time. NAD, on RA. HEENT: No pallor, no icterus. Pupils equal, round and reactive to light. Oral mucosa moist. Clean dressing over frontal scalp, no soakage. Abrasion noted in upper lip, dried blood noted in oral mucosa/no trauma or laceration noted within mouth. Bruise noted medial and posterior right knee. NECK: No JVD, no neck masses. HEART: S1 and S2 heard. Regular rate and rhythm. HR in 80s. No murmur, no gallop. RESPIRATORY SYSTEM: Normal AP diameter. No accessory muscle use. No wheezing, no crackles. ABDOMEN: Soft, bowel sounds present, nontender, no distention. CENTRAL NERVOUS SYSTEM: No facial droop. Speech is clear. Obeys simple commands. Moves extremities. EXTREMITIES: No edema, no erythema seen. Time spent independently: 25 min I have seen and examined the patient and have discussed the case with the provider above. I agree with the assessment and plan as stated.
[2025-02-18] MEDS ORDERED: METOPROLOL TARTRATE 1 MG/ML VIAL IV PRN (09:48)
[2025-02-18] MEDS: LIDOCAINE 5% 1 PATCH TD SCH (10:01)
[2025-02-18] MEDS: ACETAMINOPHEN 325 MG TAB PO PRN (10:01)
[2025-02-18] MEDS: DIVALPROEX DELAY RELEASE 250 MG TABEC PO SCH (10:25)
[2025-02-18] MEDS: METOPROLOL TARTRATE 25 MG TAB PO SCH (10:25)
[2025-02-18] MEDS: CYANOCOBALAMIN (B-12) 500 MCG TABLET PO SCH (10:25)
[2025-02-18] MEDS: FOLIC ACID 1 MG TAB PO SCH (10:26)
[2025-02-18] MEDS: GABAPENTIN 100 MG CAP PO SCH (10:26)
[2025-02-18] MEDS: QUEtiapine FUMARATE 25 MG TABLET PO SCH (10:26)
[2025-02-18] MEDS: CITALOPRAM 20 MG TAB PO SCH (10:26)
[2025-02-18] MEDS: POLYETHYLENE (MIRALAX) 17 GM PACK PO SCH (10:59)
--- NOTE | 2025-02-18 11:05 | Orthopedic Consultation ---
Date of Service February 18, 2025 Assessment & Plan (1) Thoracic compression fracture: Mild compression deformity of the T12 vertebra anteriorly, mildly displaced transverse process fracture. These are stable fracture patterns, this could possibly be old fractures as the patient is not symptomatic at these levels. He does not report any significant back pain there is no neurologic change to the function of the lower extremities. Patient may mobilize as tolerated with physical therapy, if he does develop some thoracic back pain would consider TLSO brace however at this time patient declines the brace as he says he has no pain which I feel is reasonable. If patient develops back pain with mobilization wit h PT, we will order MRI of the thoracic spine to better evaluate the acuity of the fracture as well as likely order him TLSO brace. History of Present Illness Reason for Consultation: Compression fracture Requesting Physician: . Attending Physician: Melvin Lindquist MD Patient is an 85-year-old gentleman admitted status post fall at home, found to be in atrial fibrillation. Head laceration has been sutured with dressing applied. Scans of the chest revealed T12 compression fracture, age- indeterminate. Patient does not endorse any back pain has no neurologic symptoms. Slow to answer questions today however answers appropriately. No neurologic symptoms, no significant pain. He has multiple other injuries including scalp laceration, fracture to the wrist. Allergies Allergy/AdvReac Type Severity Reaction Status Date / Time chlorhexidine Allergy Unknown Verified 02/18/25 09:06 Home Medications Medication Instructions Recorded Confirmed Type acetaminophen 650 mg 650 mg PO Q4H PRN Pain 02/18/25 02/18/25 History tablet,extended release apixaban 5 mg tablet (Eliquis) 5 mg PO BID 02/18/25 02/18/25 History aspirin 81 mg tablet,delayed 81 mg PO QAM 02/18/25 02/18/25 History release bisacodyl 10 mg rectal suppository 10 mg ND PM PRN Constipation 02/18/25 02/18/25 History (Dulcolax (bisacodyl)) cholecalciferol (vitamin D3) 25 25 mcg PO QAM 02/18/25 02/18/25 History mcg (1,000 unit) tablet (Vitamin D3) citalopram 20 mg tablet (Celexa) 20 mg PO QAM 02/18/25 02/18/25 History cranberry fruit 450 mg tablet 450 mg PO QAM 02/18/25 02/18/25 History (cranberry) cyanocobalamin (vitamin B-12) 1,000 mcg PO QAM 02/18/25 02/18/25 History 1,000 mcg tablet (Vitamin B-12) diclofenac sodium 1 % topical gel 2 g topical Q8H PRN Pain 02/18/25 02/18/25 History divalproex 125 mg tablet,delayed 250 mg PO BID 02/18/25 02/18/25 History release folic acid 1 mg tablet 1 mg PO QAM 02/18/25 02/18/25 History furosemide 20 mg tablet (Lasix) 60 mg PO QAM 02/18/25 02/18/25 History gabapentin 100 mg capsule 100 mg PO BID 02/18/25 02/18/25 History hydrocortisone-pramoxine 2.5 %-1 % 1 applic ND BID 02/18/25 02/18/25 History rectal cream (Analpram-HC) latanoprost 0.005 % eye drops, 1 drp ophthalmic (eye) PM 02/18/25 02/18/25 History emulsion magnesium hydroxide 400 mg/5 mL 2,400 mg PO QAM PRN Constipation 02/18/25 02/18/25 History oral suspension (Milk of Magnesia) magnesium oxide 400 mg PO BID 02/18/25 02/18/25 History metoprolol tartrate 25 mg tablet 25 mg PO QAM 02/18/25 02/18/25 History mv-mn-folic 200 mcg-vit K 15 1 cap PO BID 02/18/25 02/18/25 History mcg-lutein 5 mg-zeaxanthin 1 mg capsule (PreserVision AREDS 2 Plus Multivit) olanzapine 5 mg tablet 5 mg PO HS 02/18/25 02/18/25 History polyethylene glycol 3350 17 17 g PO BID 02/18/25 02/18/25 History gram/dose oral powder (Miralax) potassium chloride 10 mEq 10 meq PO BID 02/18/25 02/18/25 History tablet,extended release quetiapine 200 mg tablet (Seroquel) 200 mg PO HS 02/18/25 02/18/25 History quetiapine 25 mg tablet (Seroquel) 25 mg PO BIDWMEAL 02/18/25 02/18/25 History sennosides 8.6 mg tablet (senna) 8.6 mg PO BID 02/18/25 02/18/25 History sodium chloride 0.65 % nasal spray 1 spray intranasal Q6H PRN Nasal 02/18/25 02/18/25 History aerosol Congestion sodium phosphates 19 gram-7 118 ml ND QAM PRN Constipation 02/18/25 02/18/25 History gram/118 mL enema (Enema) trazodone 50 mg tablet 50 mg PO HS 02/18/25 02/18/25 History Past Med/Surg History Problem List (Updated 02/18/25 @ 11:07 by Hector Parker MD) Thoracic compression fracture Paroxysmal A-fib (Acute) Anemia (Acute) Fall (Acute) Hand pain, left (Acute) Left shoulder strain (Acute) Acute hemorrhage (Acute) Complex laceration of scalp (Acute) CHI (closed head injury) (Acute) Social History Smoking Status: Never smoker Hx Alcohol Use: No Hx Substance Use: No Preferred Language: Barbadian Pilot Captain Required: No Beliefs That Will Affect Care: None Current Living Situation: Personal Care Facility Feels Safe at Home: Yes Safety Concerns: Feels Safe At This Time Assistive Devices: Cane Review of Systems All systems reviewed & are unremarkable except as noted in HPI & below. Physical Exam Scalp dressing No midline or paraspinal tenderness with palpation over the lumbar spine or thoracic spine, no stepoffs Motor strength is 5/5 in bilateral hip flexors, quadriceps, tibialis anterior, extensor hallucis longus, and gastroc/soleus complex Sensation intact to light touch in the L2-S1 dermatomes bilaterally 2+ reflexes at the achilles and patella tendons bilaterally No ankle clonus Results & Data Results & Data Laboratory Results . Diagnostic Findings CT scan of the chest was available for review today with clear pictures of the thoracic spine. Mild height loss anteriorly at the T12 level, mildly displaced T12 transverse process fracture. Facet joints do not appear to be involved in the fracture line, there is no spinous process gapping, no focal kyphosis. Diffuse spondylosis noted throughout the thoracic spine. CT scan of the cervical spine was available for review today and interpreted personally. Diffuse spondylosis throughout the cervical spine. Prior anterior cervical discectomy and fusion at C3-4 with posterior C3 and C4 laminectomies. No evidence of acute fracture, chronic degenerative changes throughout the cervical spine. PG Care Time/CCT Total # of Minutes Spent Total Time Spent with Patient: Total time spent is greater than 50% in coordination of care (as documented) at patient's floor/unit and/or counseling patient: [place] [address] IN/OBS CONSULT LVL 4,60M Patient Type New History Problem Focused Exam Problem Focused Medical Decision Making Low Complexity Diagnoses Compression fracture of T12 vertebra, initial encounter S22.080A Encounter type: initial encounter Thoracic vertebra fracture level: T12 (1) Thoracic compression fracture Encounter type: initial encounter Thoracic vertebra fracture level: T12 Qualified Code(s): S22.080A - Wedge compression fracture of T11-T12 vertebra, initial encounter for closed fracture
--- NOTE | 2025-02-18 11:51 | Orthopedic Consultation ---
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 Acute versus acute on chronic PLAN: Will treat conservatively. RICE. Short course of anti-inflammatories, alternating with Tylenol as needed for pain. Will switch the brace to a thumb spica removable brace, may remove for bathing. Continue care per hospitalist service Follow-up as an outpatient 2 weeks after discharge. Present on Admission?: Yes (2) Left shoulder strain: IMPRESSION: Left shoulder/upper arm pain secondarily to contusion versus rotator cuff arthropathy Acute versus acute on chronic PLAN: Will treat conservatively. RICE. Short course of anti-inflammatories, alternating with Tylenol as needed for pain. Due to pain over the distal upper arm, will obtain humerus x-rays to rule out fracture Continue care per hospitalist service Follow-up as an outpatient 2 weeks after discharge. Present on Admission?: Yes History of Present Illness Reason for Consultation: Left wrist fracture Requesting Physician: Prashant Sanchez MD Attending Physician: Melvin Lindquist MD History of Present Illness The patient is a 85-year-old male with a past medical history of dementia, vitamin B12 deficiency, atrial fibrillation on Eliquis, CHF, constipation who presents to the ED on 02/18/2025 s/p fall. Patient is difficult to arose enough to answer questions, per H&P is a poor historian but reports tripping over something this morning. He is from a dementia unit and the staff found him face down on the floor. Unknown period of time. On arrival to the ED, patient had a scalp laceration that was sutured in the ER. He was also found to be in rapid A-fib in the 120s intermittently. Patient is c/o left upper arm pain. Allergies Allergy/AdvReac Type Severity Reaction Status Date / Time chlorhexidine Allergy Unknown Verified 02/18/25 09:06 Home Medications Medication Instructions Recorded Confirmed Type acetaminophen 650 mg 650 mg PO Q4H PRN Pain 02/18/25 02/18/25 History tablet,extended release apixaban 5 mg tablet (Eliquis) 5 mg PO BID 02/18/25 02/18/25 History aspirin 81 mg tablet,delayed 81 mg PO QAM 02/18/25 02/18/25 History release bisacodyl 10 mg rectal suppository 10 mg VA PM PRN Constipation 02/18/25 02/18/25 History (Dulcolax (bisacodyl)) cholecalciferol (vitamin D3) 25 25 mcg PO QAM 02/18/25 02/18/25 History mcg (1,000 unit) tablet (Vitamin D3) citalopram 20 mg tablet (Celexa) 20 mg PO QAM 02/18/25 02/18/25 History cranberry fruit 450 mg tablet 450 mg PO QAM 02/18/25 02/18/25 History (cranberry) cyanocobalamin (vitamin B-12) 1,000 mcg PO QAM 02/18/25 02/18/25 History 1,000 mcg tablet (Vitamin B-12) diclofenac sodium 1 % topical gel 2 g topical Q8H PRN Pain 02/18/25 02/18/25 History divalproex 125 mg tablet,delayed 250 mg PO BID 02/18/25 02/18/25 History release folic acid 1 mg tablet 1 mg PO QAM 02/18/25 02/18/25 History furosemide 20 mg tablet (Lasix) 60 mg PO QAM 02/18/25 02/18/25 History gabapentin 100 mg capsule 100 mg PO BID 02/18/25 02/18/25 History hydrocortisone-pramoxine 2.5 %-1 % 1 applic VA BID 02/18/25 02/18/25 History rectal cream (Analpram-HC) latanoprost 0.005 % eye drops, 1 drp ophthalmic (eye) PM 02/18/25 02/18/25 History emulsion magnesium hydroxide 400 mg/5 mL 2,400 mg PO QAM PRN Constipation 02/18/25 02/18/25 History oral suspension (Milk of Magnesia) magnesium oxide 400 mg PO BID 02/18/25 02/18/25 History metoprolol tartrate 25 mg tablet 25 mg PO QAM 02/18/25 02/18/25 History mv-mn-folic 200 mcg-vit K 15 1 cap PO BID 02/18/25 02/18/25 History mcg-lutein 5 mg-zeaxanthin 1 mg capsule (PreserVision AREDS 2 Plus Multivit) olanzapine 5 mg tablet 5 mg PO HS 02/18/25 02/18/25 History polyethylene glycol 3350 17 17 g PO BID 02/18/25 02/18/25 History gram/dose oral powder (Miralax) potassium chloride 10 mEq 10 meq PO BID 02/18/25 02/18/25 History tablet,extended release quetiapine 200 mg tablet (Seroquel) 200 mg PO HS 02/18/25 02/18/25 History quetiapine 25 mg tablet (Seroquel) 25 mg PO BIDWMEAL 02/18/25 02/18/25 History sennosides 8.6 mg tablet (senna) 8.6 mg PO BID 02/18/25 02/18/25 History sodium chloride 0.65 % nasal spray 1 spray intranasal Q6H PRN Nasal 02/18/25 02/18/25 History aerosol Congestion sodium phosphates 19 gram-7 118 ml VA QAM PRN Constipation 02/18/25 02/18/25 History gram/118 mL enema (Enema) trazodone 50 mg tablet 50 mg PO HS 02/18/25 02/18/25 History Patient History Social History Smoking Status: Never smoker Hx Alcohol Use: No Hx Substance Use: No Preferred Language: Turkish Carton Wrapper Required: No Beliefs That Will Affect Care: None Current Living Situation: Personal Care Facility Feels Safe at Home: Yes Safety Concerns: Feels Safe At This Time Assistive Devices: Cane Review of Systems Review of Systems: Unobtainable due to cognitive status Physical Exam Physical Exam: Patient is difficult to arouse, will only follow questions intermittently. LUE: Sensation to light touch is intact distally. 2+ radial pulse. Intermittently follows motor directions, grossly intact for median, radial, ulnar, AIN, PIN, musculocutaneous nerves. + Tenderness to palpation over the first CMC joint & distal third of the upper arm, no noted step-offs of the distal humerus. + Deformity of the first CMC joint. + Multiple bruising of the hand, upper a rm. - Pain with gentle circumduction of the glenohumeral joint. Full ROM of the elbow. Results & Data Vital Signs (Past 12 Hours) Vital Signs Temp Pulse Pulse Resp BP BP BP 02/18/25 11:38 91 H 02/18/25 09:48 36.5 C 87 18 166/82 H 02/18/25 09:28 95 H 15 143/76 H 02/18/25 09:00 118 H 23 143/76 H 02/18/25 08:29 95 H 126/87 02/18/25 08:04 123 H 148/87 H 02/18/25 08:00 147 H 19 148/87 H 02/18/25 07:34 130 H 02/18/25 07:00 36.8 C 106 H 20 102/84 02/18/25 06:34 36.6 C 85 18 159/81 H 02/18/25 06:33 86 18 02/18/25 06:18 86 20 02/18/25 06:06 84 02/18/25 05:51 02/18/25 05:28 36.6 C 89 18 171/86 H 02/18/25 05:25 36.6 C 89 18 171/86 H 02/18/25 05:25 36.6 C 89 18 171/86 H Pulse Ox O2 Del Method O2 Flow Rate 02/18/25 11:38 02/18/25 09:48 98 Room Air 02/18/25 09:28 95 Room Air 02/18/25 09:00 95 Room Air 02/18/25 08:29 02/18/25 08:04 02/18/25 08:00 96 Room Air 02/18/25 07:34 02/18/25 07:00 97 Room Air 02/18/25 06:34 98 Room Air 02/18/25 06:33 98 Room Air 02/18/25 06:18 97 Room Air 02/18/25 06:06 02/18/25 05:51 97 Room Air 02/18/25 05:28 97 Room Air 02/18/25 05:25 97 Room Air 02/18/25 05:25 97 Room Air 0 Laboratory Results 02/18/25 02/18/25 02/18/25 Range/Units 08:05 05:45 05:44 WBC 9.15 (4.8-10.8) K/ul RBC 2.51 L (4.70-6.10) M/uL Hgb 8.6 L 8.5 L (14.0-18.0) g/dl Hct 26.5 L 26.1 L (42.0-52.0) % MCV 104.0 H (80.0-100.0) fL MCH 33.9 (25.0-34.0) pg MCHC 32.6 (32.0-36.0) g/dL RDW Std Deviation 65.1 H (36.4-46.3) fL RDW Coeff of Miguel Ángel 17.2 H (11.5-14.5) % Plt Count 341 (130-400) K/uL MPV 8.8 L (9.4-12.4) fL Immature Gran % (Auto) 1.5 % Neut % (Auto) 63.6 % Lymph % (Auto) 14.1 % Jay % (Auto) 19.2 % Eos % (Auto) 1.3 % Baso % (Auto) 0.3 % Neut # (Auto) 5.81 (1.40-6.50) K/uL Lymph # (Auto) 1.29 (1.20-3.40) K/uL Jay # (Auto) 1.76 H (0.11-0.59) K/uL Eos # (Auto) 0.12 (0.00-0.50) K/uL Baso # (Auto) 0.03 (0.00-0.20) K/uL Immature Gran # (Auto) 0.14 (0.01-0.20) K/uL Sodium 142 (136-145) mmol/L Potassium 4.2 (3.5-5.1) mmol/L Chloride 105 (98-107) mmol/L Carbon Dioxide 30 (21-32) mmol/L Anion Gap 7 (3-11) BUN 33 H (6-23) mg/dl Creatinine 1.50 H (0.6-1.4) mg/dl Est Cr Clr Drug Dosing 37.9 ml/min eGFR 45.62 BUN/Creatinine Ratio 22.0 H (10-20) Glucose 112 H (70-99(Fasting)) mg/dl Calcium 9.1 (8.6-10.3) mg/dl Magnesium 2.3 (1.7-2.4) mg/dl Total Bilirubin 1.1 H (0.2-1.0) mg/dl AST 67 H (13-39) U/L ALT 30 (7-52) U/L Alkaline Phosphatase 109 H (34-104) U/L Total Protein 7.0 (6.0-8.3) gm/dl Albumin 3.9 (3.4-5.0) gm/dl Globulin 3.1 (2.5-4.0) gm/dl Albumin/Globulin Ratio 1.3 (0.9-2) Blood Type O Positive Antibody Screen NEGATIVE Diagnostic Findings XR hand LT min 3V routine CLINICAL HISTORY: fall, trauma left hand pain TECHNIQUE: Radiograph of left hand was acquired. COMPARISON: none FINDINGS: Age indeterminate fracture of traepzium bone with sclerosis. A small lytic lesion in proximal end of metacarpal bone. Rest carpal bones are well aligned. The soft tissues are unremarkable. The joint spaces are well-preserved. IMPRESSION: 1. Age indeterminate fracture of trapezium bone with sclerosis. 2. A small lytic lesion in proximal end of metacarpal bone, likely degenerative subchondral cyst. Electronically signed by Shemar Paulino 02-18-2025 07:39 AM DB interpretation Agree with above, in addition severe degenerative changes [id number] 1st MCP joint and degenerative subchondral cysts of the Scaphoid and lunate. XR shoulder LT min 2V routine CLINICAL HISTORY: fall, trauma left shoulder pain TECHNIQUE: Radiograph of left shoulder was acquired. COMPARISON: none FINDINGS: There is no evidence of acute fracture, dislocation or osseous lesion. The acromioclavicular joint space is preserved. The glenohumeral joint space is preserved. The adjacent soft tissues appear unremarkable, with no evidence of joint effusion. IMPRESSION: 1. No acute osseous or soft tissue abnormality. DB interpretation No acute fracture or dislocation. High riding humeral head consistent with rotator cuff arthropathy.
[2025-02-18] MEDS: traZODone HCL 50 MG TAB PO SCH (20:15)
[2025-02-18] MEDS: QUEtiapine FUMARATE 200 MG TAB PO SCH (20:16)
[2025-02-18] MEDS: OLANZapine 5 MG TABLET PO SCH (20:16)
[2025-02-18] MEDS: LATANOPROST 0.005% OP SOLN 2.5 ML BTL OP SCH (20:55)
[2025-02-19 06:10] LABS: Basophils # (auto) 0.04 K/uL (0.00-0.20); Basophils % (auto) 0.5 %; Eosinophils # (auto) 0.13 K/uL (0.00-0.50); Eosinophils % (auto) 1.7 %; Hematocrit (blood only) 26.8 % (42.0-52.0); Hemoglobin 8.7 g/dl (14.0-18.0); Immature Granulocytes # (auto) 0.15 K/uL (0.01-0.20); Mean Corpuscular Hemoglobin 33.9 pg (25.0-34.0); Mean Corpuscular Hgb Conc 32.5 g/dL (32.0-36.0); Mean Corpuscular Volume 104.3 fL (80.0-100.0); Mean Platelet Volume 8.9 fL (9.4-12.4); Monocytes # (auto) 1.38 K/uL (0.11-0.59); Monocytes % (auto) 18.1 %; Neutrophils # (auto) 4.64 K/uL (1.40-6.50); Neutrophils % (auto) 60.7 %; Platelet Count 348 K/uL (130-400); RDW Coefficient of Variation 16.6 % (11.5-14.5); RDW Standard Deviation 63.2 fL (36.4-46.3); Red Blood Count 2.57 M/uL (4.70-6.10); White Blood Count 7.64 K/ul (4.8-10.8)
[2025-02-19 06:30] LABS: Albumin Globulin Ratio 1.4 (0.9-2); BUN Creatinine Ratio 25.4 (10-20); Bilirubin,Total 1.1 mg/dl (0.2-1.0); Creatinine Clr Calc Pharmacy 49.8 ml/min; Globulin 2.9 gm/dl (2.5-4.0); Total Protein 6.9 gm/dl (6.0-8.3)
[2025-02-19] MEDS: ACETAMINOPHEN 500 MG TAB PO STA (08:55)
[2025-02-19] MEDS: FUROSEMIDE 20 MG TAB PO SCH (09:00)
--- NOTE | 2025-02-19 10:14 | Orthopedic Progress Note ---
Date of Service February 19, 2025 Assessment & Plan (1) Hand pain, left: Plan: IMPRESSION: Left wrist/hand pain secondarily to first CMC & wrist OA, possible fracture of the trapezium age indeterminant. Acute versus acute on chronic PLAN: Will treat conservatively. RICE. Short course of anti-inflammatories, alternating with Tylenol as needed for pain. Will switch the brace to a thumb spica removable brace, may remove for bathing. Continue care per hospitalist service Follow-up as an outpatient 2 weeks after discharge. (2) Left shoulder strain: Plan: IMPRESSION: Left shoulder/upper arm pain secondarily to contusion versus rotator cuff arthropathy Acute versus acute on chronic PLAN: Will treat conservatively. RICE. Short course of anti-inflammatories, alternating with Tylenol as needed for pain. Continue care per hospitalist service Follow-up as an outpatient 2 weeks after discharge. Admission and Anticipated Discharge Date Admission Date: February 18, 2025 Subjective Somnolent, no complaint Review of Systems Review of Systems: Unobtainable due to cognitive status Physical Exam Physical Exam: Patient is difficult to arouse. LUE: Sensation to light unable to assess. 2+ radial pulse. Motor unable to assess. + Tenderness to palpation over the first CMC joint. + Deformity of the first CMC joint. + Multiple bruising of the hand, upper a rm. - Pain with gentle circumduction of the glenohumeral joint. Results & Data Vital Signs (Past 12 Hours) Vital Signs Temp Pulse Resp BP Pulse Ox O2 Del Method 02/19/25 08:15 36.5 C 78 18 187/79 H 100 Room Air 02/19/25 02:28 36.8 C 84 18 137/68 100 Room Air 02/18/25 23:29 36.6 C 113 H 18 111/55 L 96 Room Air Laboratory Results 02/19/25 02/18/25 Range/Units 05:40 16:50 WBC 7.64 (4.8-10.8) K/ul RBC 2.57 L (4.70-6.10) M/uL Hgb 8.7 L 8.8 L (14.0-18.0) g/dl Hct 26.8 L (42.0-52.0) % MCV 104.3 H (80.0-100.0) fL MCH 33.9 (25.0-34.0) pg MCHC 32.5 (32.0-36.0) g/dL RDW Std Deviation 63.2 H (36.4-46.3) fL RDW Coeff of Miguel Ángel 16.6 H (11.5-14.5) % Plt Count 348 (130-400) K/uL MPV 8.9 L (9.4-12.4) fL Immature Gran % (Auto) 2.0 % Neut % (Auto) 60.7 % Lymph % (Auto) 17.0 % Finney % (Auto) 18.1 % Eos % (Auto) 1.7 % Baso % (Auto) 0.5 % Neut # (Auto) 4.64 (1.40-6.50) K/uL Lymph # (Auto) 1.30 (1.20-3.40) K/uL Finney # (Auto) 1.38 H (0.11-0.59) K/uL Eos # (Auto) 0.13 (0.00-0.50) K/uL Baso # (Auto) 0.04 (0.00-0.20) K/uL Immature Gran # (Auto) 0.15 (0.01-0.20) K/uL Sodium 139 (136-145) mmol/L Potassium 4.0 (3.5-5.1) mmol/L Chloride 105 (98-107) mmol/L Carbon Dioxide 27 (21-32) mmol/L Anion Gap 7 (3-11) BUN 29 H (6-23) mg/dl Creatinine 1.14 D (0.6-1.4) mg/dl Est Cr Clr Drug Dosing 49.8 ml/min eGFR 63.42 BUN/Creatinine Ratio 25.4 H (10-20) Glucose 113 H (70-99(Fasting)) mg/dl Calcium 9.0 (8.6-10.3) mg/dl Total Bilirubin 1.1 H (0.2-1.0) mg/dl AST 61 H (13-39) U/L ALT 30 (7-52) U/L Alkaline Phosphatase 106 H (34-104) U/L Total Protein 6.9 (6.0-8.3) gm/dl Albumin 4.0 (3.4-5.0) gm/dl Globulin 2.9 (2.5-4.0) gm/dl Albumin/Globulin Ratio 1.4 (0.9-2) Diagnostic Findings I reviewed the AP & Lateral of the humerus showed no fracture or dislocation.
--- NOTE | 2025-02-19 10:23 | XRay Report ---
XR humerus LT 2V HISTORY: 85 years-old Male PAIN acute pain of the left upper extremity COMPARISON: Shoulder radiographs 02/18/2025 TECHNIQUE: 2 views of left humerus FINDINGS: Osteoarthritis of the shoulder and elbow. No acute fracture, dislocation or opaque foreign body. Mild lateral shoulder soft tissue swelling. IMPRESSION: No acute fracture or dislocation. ACT 112: Negative or not required by law. The above report was generated using voice recognition software. It may contain grammatical, syntax o r spelling errors. Electronically signed by: Ayo Odonnell M.D. 02/19/2025 10:22 AM
--- NOTE | 2025-02-19 10:59 | Hospitalist Progress Note ---
Date of Service February 19, 2025 Assessment & Plan (1) Paroxysmal A-fib: (2) Anemia: (3) Fall: (4) Hand pain, left: (5) Left shoulder strain: (6) Complex laceration of scalp: (7) CHI (closed head injury): Plan The patient is a 85-year-old male who presented to the ED on 02/18/2025 s/p fall found to be in rapid A-fib with scalp laceration, T12 compression fracture, left wrist fracture, left 10th rib fracture Mechanical fall Scalp lacerationCHI Acute blood loss anemia Poor historian, reports tripping, no LOC Head CT negative, scalp laceration sutured in ED Sutures will need to be removed in 7-10 days, bleeding controlled Hemoglobin stable, continue to monitor, hemodynamically stable Rapid A-fib - improved: Intermittently in rapid A-fib, improved with IV Lopressor 2.5 Telemetry monitoring, restart home metoprolol, IV Lopressor as needed Hold Eliquis for now CHF: Continue Lasix, some mild lower extremity edema, appears euvolemic T12 compression fracture: Noted on chest CT, Ortho consulted, TLSO brace; MR thoracic spine ordered PT/OT when cleared by Ortho, asymptomatic on exam Left wrist fracture: Thumb spica brace ordered, Ortho consulted -f/u op 2 weeks post dc Left 10th rib fracture: Incentive spirometry, lidocaine patch, Tylenol for pain Hx dementia with behavioral disturbances: Continue home medications including Seroquel/Depakote/Zyprexa A total of 45 minutes was spent on chart review/facilitating plan of care/discussion with consultants/reviewing diagnostic data Plan for ADC tomorrow after pt/ot eval back to dementia unit. Full code DVT prophylaxis: Eliquis on hold with fall/laceration Admission and Anticipated Discharge Date Admission Date: February 18, 2025 Subjective Pt seen and examined. Reports some generalized pain today. Denies CP/SOB/abdominal pain. N/V/D. Review of Systems Review of Systems: All systems reviewed & are unremarkable except as noted in HPI & below Physical Exam Constitutional: WD/WN, vitals as above Eyes: PERRL, conjunctivae normal, anicteric sclerae (facial laceration, sutured, no active bleeding; lip abrasion ) ENMT: external ear and nose normal, oropharynx normal (facial laceration, sutured, no active bleeding; lip abrasion ) Neck: trachea midline, no thyromegaly Respiratory: normal respiratory effort, lungs clear to auscultation Cardiovascular: RRR, no murmur, no edema (+1 LE edema pitting ) Gastrointestinal (Abdomen): normal bowel sounds, soft, nontender, no hepatosplenomegaly Musculoskeletal: no cyanosis or clubbing, extremities motor strength 5/5 Skin: no rashes, warm and dry Neurologic: PERRL, EOMI, accommodation nl, no face palsy, no dysarthria Lymphatic: no cervical or axillary lymphadenopathy Results & Data Results & Data Vital Signs (Past 12 Hours) Vital Signs Temp Pulse Resp BP Pulse Ox O2 Del Method 02/19/25 08:15 36.5 C 78 18 187/79 H 100 Room Air 02/19/25 02:28 36.8 C 84 18 137/68 100 Room Air 02/18/25 23:29 36.6 C 113 H 18 111/55 L 96 Room Air Diagnostic Findings Laboratory Results WBC 7.64 K/ul (4.8-10.8) 02/19/25 05:40 RBC 2.57 M/uL (4.70-6.10) L 02/19/25 05:40 Hgb 8.7 g/dl (14.0-18.0) L 02/19/25 05:40 Hct 26.8 % (42.0-52.0) L 02/19/25 05:40 MCV 104.3 fL (80.0-100.0) H 02/19/25 05:40 MCH 33.9 pg (25.0-34.0) 02/19/25 05:40 MCHC 32.5 g/dL (32.0-36.0) 02/19/25 05:40 RDW Std Deviation 63.2 fL (36.4-46.3) H 02/19/25 05:40 RDW Coeff of Miguel Ángel 16.6 % (11.5-14.5) H 02/19/25 05:40 Plt Count 348 K/uL (130-400) 02/19/25 05:40 MPV 8.9 fL (9.4-12.4) L 02/19/25 05:40 Immature Gran % (Auto) 2.0 % 02/19/25 05:40 Neut % (Auto) 60.7 % 02/19/25 05:40 Lymph % (Auto) 17.0 % 02/19/25 05:40 Dukes % (Auto) 18.1 % 02/19/25 05:40 Eos % (Auto) 1.7 % 02/19/25 05:40 Baso % (Auto) 0.5 % 02/19/25 05:40 Neut # (Auto) 4.64 K/uL (1.40-6.50) 02/19/25 05:40 Lymph # (Auto) 1.30 K/uL (1.20-3.40) 02/19/25 05:40 Dukes # (Auto) 1.38 K/uL (0.11-0.59) H 02/19/25 05:40 Eos # (Auto) 0.13 K/uL (0.00-0.50) 02/19/25 05:40 Baso # (Auto) 0.04 K/uL (0.00-0.20) 02/19/25 05:40 Immature Gran # (Auto) 0.15 K/uL (0.01-0.20) 02/19/25 05:40 Sodium 139 mmol/L (136-145) 02/19/25 05:40 Potassium 4.0 mmol/L (3.5-5.1) 02/19/25 05:40 Chloride 105 mmol/L (98-107) 02/19/25 05:40 Carbon Dioxide 27 mmol/L (21-32) 02/19/25 05:40 Anion Gap 7 (3-11) 02/19/25 05:40 BUN 29 mg/dl (6-23) H 02/19/25 05:40 Creatinine 1.14 mg/dl (0.6-1.4) D 02/19/25 05:40 Est Cr Clr Drug Dosing 49.8 ml/min 02/19/25 05:40 eGFR 63.42 02/19/25 05:40 BUN/Creatinine Ratio 25.4 (10-20) H 02/19/25 05:40 Glucose 113 mg/dl (70-99(Fasting)) H 02/19/25 05:40 Calcium 9.0 mg/dl (8.6-10.3) 02/19/25 05:40 Magnesium 2.3 mg/dl (1.7-2.4) 02/18/25 08:05 Total Bilirubin 1.1 mg/dl (0.2-1.0) H 02/19/25 05:40 AST 61 U/L (13-39) H 02/19/25 05:40 ALT 30 U/L (7-52) 02/19/25 05:40 Alkaline Phosphatase 106 U/L (34-104) H 02/19/25 05:40 Total Protein 6.9 gm/dl (6.0-8.3) 02/19/25 05:40 Albumin 4.0 gm/dl (3.4-5.0) 02/19/25 05:40 Globulin 2.9 gm/dl (2.5-4.0) 02/19/25 05:40 Albumin/Globulin Ratio 1.4 (0.9-2) 02/19/25 05:40 Blood Type O Positive 02/18/25 05:45 Antibody Screen NEGATIVE 02/18/25 05:45 Impressions Chest X-Ray 02/18/25 05:52 EXAM: XR chest 1V portable CLINICAL HISTORY: fall, trauma TECHNIQUE: Radiograph of chest was acquired. COMPARISON: none FINDINGS: A small pleural based radio-opacity seen near right cotophrenic angle. The lungs are clear and well-expanded with no pulmonary infiltrate or pleural effusion. The cardiomediastinal silhouette is within normal limits. No acute osseous abnormality. IMPRESSION: 1. No acute cardiopulmonary disease. 2. A small pleural based radio-opacity seen near right cotophrenic angle. Possible pleural nodule vs small empyema vs soft tissue overlap. Electronically signed by Shemar Paulino 02-18-2025 07:42 AM Hand X-Ray 02/18/25 05:52 EXAM: XR hand LT min 3V routine CLINICAL HISTORY: fall, trauma left hand pain TECHNIQUE: Radiograph of left hand was acquired. COMPARISON: none FINDINGS: Age indeterminate fracture of traepzium bone with sclerosis. A small lytic lesion in proximal end of metacarpal bone. Rest carpal bones are well aligned. The soft tissues are unremarkable. The joint spaces are well-preserved. IMPRESSION: 1. Age indeterminate fracture of traepzium bone with sclerosis. 2. A small lytic lesion in proximal end of metacarpal bone, likely degenerative subchondral cyst. Electronically signed by Shemar Paulino 02-18-2025 07:39 AM Shoulder X-Ray 02/18/25 05:52 EXAM: XR shoulder LT min 2V routine CLINICAL HISTORY: fall, trauma left shoulder pain TECHNIQUE: Radiograph of left shoulder was acquired. COMPARISON: none FINDINGS: There is no evidence of acute fracture, dislocation or osseous lesion. The acromioclavicular joint space is preserved. The glenohumeral joint space is preserved. The adjacent soft tissues appear unremarkable, with no evidence of joint effusion. IMPRESSION: 1. No acute osseous or soft tissue abnormality. Electronically signed by Shemar Paulino 02-18-2025 07:[address] 02/18/25 06:15 EXAM: CT cervical spine wo con CLINICAL HISTORY: fall, CHI TECHNIQUE: Computed tomography of the cervical spine performed without intravenous contrast. Contiguous axial images were obtained from the skull base to T2, with sagittal and coronal reformatted images reconstructed from the axial data. CT scan was performed according to ALARA (as low as reasonable achievable). COMPARISON: None. FINDINGS: Loss of cervical lordosis - suggest possibility of muscle spasm/positional. Degenerative changes involving cervical spine in the form of multilevel marginal osteophytes, disc space reduction and facetal arthrosis. Post laminectomy status is noted at C3 and C4 vertebra. Fixation screws and plates are seen in situ without obvious loosening Cervical vertebral bodies are normal in height and alignment, with no evidence of fracture or subluxation. Lateral masses of C1 are symmetrical, and the dens is intact. Prevertebral soft tissues are not widened. The remaining suprahyoid and infrahyoid soft tissues in the neck are unremarkable. Posterior uncovertebral arthrosis is noted at C4-C5, C5-C6 and C6-C7 level which indenting ventral thecal sac and causes bilateral neuroforaminal narrowing. Thyroid gland appears unremarkable. IMPRESSION: 1.No acute fracture or subluxation in the cervical spine. 2.Cervical spondylosis. Electronically signed by Shemar Paulino 02-18-2025 07:[address] 02/18/25 06:15 EXAM: CT facial bones wo con CLINICAL HISTORY: fall TECHNIQUE: Computed tomography of the orbits/face was performed without intravenous contrast. Contiguous axial images were obtained. Reformatted coronal and sagittal images were also reviewed. CT scan was performed according to ALARA (as low as reasonable achievable). COMPARISON: none. FINDINGS: No acute facial fractures. Mild left maxillary sinusitis. Rest ofparanasal sinuses and mastoid air cells are clear. The globes, optic nerves, extraocular muscles and retro-orbital fat are grossly unremarkable. Reformatted imaging demonstrates intact roof and floor of the orbits. Included portions of the mandible are intact. The included intracranial substances and airway are unremarkable. IMPRESSION: 1. No acute facial fractures. 2. Mild left maxillary sinusitis. Electronically signed by Shemar Paulino 02-18-2025 07:[address] 02/18/25 06:15 EXAM: CT head/brain wo con CLINICAL HISTORY: trauma, fall TECHNIQUE: Multiple axial images are obtained from the skull base to the vertex without contrast. CT scan was performed according to ALARA (as low as reasonable achievable). COMPARISON: None. FINDINGS: There is cerebral atrophy. No evidence of space occupying lesion, hemorrhage, edema, mass effect, midline shift, extra axial collection, or hydrocephalus is noted. Basal cisterns are symmetric and normal in size and configuration. There are scattered periventricular hypodensities as can be seen with chronic microvascular ischemic changes. The gates-white matter differentiation is preserved. Small retention cyst is noted in left maxillary sinus. Rest of paranasal sinuses and mastoid air cells are well aerated. Orbital contents are within normal limits. Bony structures are intact. IMPRESSION: 1. No evidence of acute intracranial abnormality is demonstrated. 2. Chronic microvascular ischemic changes. 3. Cerebral atrophy. Electronically signed by Shemar Paulino 02-18-2025 07:[address] 02/18/25 07:47 CT chest diagnostic wo con CT DOSE: 788.82 mGy.cm CLINICAL HISTORY: 85 years-old Male with fluid vs nodule right side on CXR. Acute shortness of breath TECHNIQUE: Multiaxial CT images of the chest were performed without contrast. A dose lowering technique was utilized adhering to the principles of ALARA. COMPARISON: Chest radiograph same day FINDINGS: No thyroid nodule identified. There are a few borderline-enlarged mediastinal lymph nodes. Heart is upper limits of size. Decreased attenuation of the cardiac blood poles suggestive of hernia. Extensive coronary artery calcifications. No thoracic aortic aneurysm. Trace pleural effusions. Mild intralobular septal thickening with subsegmental deep bibasilar atelectasis. No pneumothorax. Calcified granuloma left lower lobe. Mild linear right basilar atelectasis versus scarring on image 172. No acute upper abdominal abnormality. Moderate colonic fecal retention. Osteoarthritis of the shoulders. Complex right glenohumeral joint effusion, likely on a degenerative basis. Subacute to chronic nondisplaced posterior left 10th rib fracture. Likely chronic compression deformity of the T7 vertebral body without retropulsion. 25% superior endplate compression deformity at T12 without retropulsion appears acute. Additionally, there is an acute mildly comminuted nondisplaced left T12 transverse process fracture. The pedicles and facets appear intact. IMPRESSION: 1. Cardiomegaly with suggestion of mild interstitial pulmonary edema. 2. Trace pleural effusions with mild right basilar subsegmental atelectasis. 3. Mild T12 compression deformity without retropulsion, likely. 4. Acute mildly comminuted nondisplaced fractures of the left T12 transverse process. 5. Nondisplaced subacute to chronic appearing fracture of the posterior left 10th rib. ACT 112: Negative or not required by law. Electronically signed by: Ayo Odonnell M.D. 02/18/2025 8:39 AM Humerus X-Ray 02/19/25 00:00 XR humerus LT 2V HISTORY: 85 years-old Male PAIN acute pain of the left upper extremity COMPARISON: Shoulder radiographs 02/18/2025 TECHNIQUE: 2 views of left humerus FINDINGS: Osteoarthritis of the shoulder and elbow. No acute fracture, dislocation or opaque foreign body. Mild lateral shoulder soft tissue swelling. IMPRESSION: No acute fracture or dislocation. ACT 112: Negative or not required by law. The above report was generated using voice recognition software. It may contain grammatical, syntax or spelling errors. Electronically signed by: Ayo Odonnell M.D. 02/19/2025 10:22 AM
--- NOTE | 2025-02-19 13:58 | Electrocardiogram Report ---
Test Reason : Blood Pressure : */* mmHG Vent. Rate : 86 BPM Atrial Rate : 86 BPM P-R Int : 172 ms QRS Dur : 84 ms QT Int : 390 ms P-R-T Axes : 46 -13 29 degrees QTcB Int : 466 ms Normal sinus rhythm Minimal voltage criteria for LVH, may be normal variant ( R in aVL ) Septal infarct , age undetermined Abnormal ECG No previous ECGs available Confirmed by Tommie Hendricks ([id number]) on 02/19/2025 1:57:28 PM Referred By: Alexander Mares Confirmed By: Tommie Hendricks
[2025-02-19] MEDS: KETOROLAC TROMETHAMINE 15 MG/ML VIAL IV ONE (17:09)
[2025-02-19] MEDS: ACETAMINOPHEN 500 MG TAB PO PRN (19:17)
--- NOTE | 2025-02-20 07:44 | Hospitalist Progress Note ---
Date of Service February 20, 2025 Assessment & Plan (1) Paroxysmal A-fib: (2) Anemia: (3) Fall: (4) Hand pain, left: (5) Left shoulder strain: (6) Complex laceration of scalp: (7) CHI (closed head injury): Plan The patient is a 85-year-old male who presented to the ED on 02/18/2025 s/p fall found to be in rapid A-fib with scalp laceration, T12 compression fracture, left wrist fracture, left 10th rib fracture Mechanical fall Scalp lacerationCHI Acute blood loss anemia Poor historian, reports tripping, no LOC Head CT negative, scalp laceration sutured in ED Sutures will need to be removed in 7-10 days, bleeding controlled Hemoglobin stable, continue to monitor, hemodynamically stable Rapid A-fib - improved: Intermittently in rapid A-fib, improved with IV Lopressor 2.5 Telemetry monitoring, restart home metoprolol, IV Lopressor as needed Hold Eliquis for now CHF: Continue Lasix, some mild lower extremity edema, appears euvolemic T12 compression fracture: Noted on chest CT, Ortho consulted, TLSO brace; MR thoracic spine ordered PT/OT when cleared by Ortho, asymptomatic on exam Left wrist fracture: Thumb spica brace ordered, Ortho consulted -f/u op 2 weeks post dc Left 10th rib fracture: Incentive spirometry, lidocaine patch, Tylenol for pain Hx dementia with behavioral disturbances: Continue home medications including Seroquel/Depakote/Zyprexa A total of 45 minutes was spent on chart review/facilitating plan of care/discussion with consultants/reviewing diagnostic data Plan for ADC tomorrow after pt/ot eval back to dementia unit. Full code DVT prophylaxis: Eliquis on hold with fall/laceration Admission and Anticipated Discharge Date Admission Date: February 18, 2025
[2025-02-20 07:50] VITALS: RESP 20
[2025-02-20 08:23] LABS: Hematocrit (blood only) 24.1 % (42.0-52.0); Hemoglobin 7.9 g/dl (14.0-18.0); Mean Corpuscular Hemoglobin 33.5 pg (25.0-34.0); Mean Corpuscular Hgb Conc 32.8 g/dL (32.0-36.0); Mean Corpuscular Volume 102.1 fL (80.0-100.0); Platelet Count 316 K/uL (130-400); RDW Coefficient of Variation 16.4 % (11.5-14.5); RDW Standard Deviation 60.7 fL (36.4-46.3); Red Blood Count 2.36 M/uL (4.70-6.10); White Blood Count 4.83 K/ul (4.8-10.8)
[2025-02-20 08:47] LABS: Albumin Globulin Ratio 1.3 (0.9-2); Albumin Level 3.6 gm/dl (3.4-5.0); BUN Creatinine Ratio 24.3 (10-20); Bilirubin,Total 1.1 mg/dl (0.2-1.0); Calcium 8.7 mg/dl (8.6-10.3); Creatinine Clr Calc Pharmacy 51.2 ml/min; Globulin 2.7 gm/dl (2.5-4.0); Potassium 4.2 mmol/L (3.5-5.1); Total Protein 6.3 gm/dl (6.0-8.3)
--- NOTE | 2025-02-20 09:11 | Orthopedic Progress Note ---
Date of Service February 20, 2025 Assessment & Plan (1) Hand pain, left: Plan: IMPRESSION: Left wrist/hand pain secondarily to first CMC & wrist OA, possible fracture of the trapezium age indeterminant. Acute versus acute on chronic PLAN: Will treat conservatively. RICE. Short course of anti-inflammatories, alternating with Tylenol as needed for pain. Switched to a thumb spica removable brace, may remove for bathing. Continue care per hospitalist service Follow-up as an outpatient 2 weeks after discharge. (2) Left shoulder strain: Plan: IMPRESSION: Left shoulder/upper arm pain secondarily to contusion versus rotator cuff arthropathy Acute versus acute on chronic PLAN: Will treat conservatively. RICE. Short course of anti-inflammatories, alternating with Tylenol as needed for pain. Continue care per hospitalist service Follow-up as an outpatient 2 weeks after discharge. Please recall if any ortho issues Admission and Anticipated Discharge Date Admission Date: February 18, 2025 Subjective c/o hands burning Review of Systems Review of Systems: Unobtainable due to cognitive status Physical Exam Physical Exam: AAO x 1. LUE: Sensation to light intact. 2+ radial pulse. Motor: median, radial, ulnar (difficulty crossing fingers), AIN, PIN otherwise intact + Tenderness to palpation over the first CMC joint. + Deformity of the first CMC joint. + Multiple bruising of the hand, upper a rm. - TTP elbow/distal humerus - Pain with gentle circumduction of the glenohumeral joint. Results & Data Vital Signs (Past 12 Hours) Vital Signs Temp Pulse Resp BP Pulse Ox O2 Del Method 02/20/25 07:49 36.5 C 79 20 142/69 H 99 Room Air Laboratory Results 02/20/25 Range/Units 08:02 WBC 4.83 (4.8-10.8) K/ul RBC 2.36 L (4.70-6.10) M/uL Hgb 7.9 L (14.0-18.0) g/dl Hct 24.1 L (42.0-52.0) % MCV 102.1 H (80.0-100.0) fL MCH 33.5 (25.0-34.0) pg MCHC 32.8 (32.0-36.0) g/dL RDW Std Deviation 60.7 H (36.4-46.3) fL RDW Coeff of Miguel Ángel 16.4 H (11.5-14.5) % Plt Count 316 (130-400) K/uL MPV 9.0 L (9.4-12.4) fL Sodium 141 (136-145) mmol/L Potassium 4.2 (3.5-5.1) mmol/L Chloride 107 (98-107) mmol/L Carbon Dioxide 27 (21-32) mmol/L Anion Gap 7 (3-11) BUN 27 H (6-23) mg/dl Creatinine 1.11 (0.6-1.4) mg/dl Est Cr Clr Drug Dosing 51.2 ml/min eGFR 65.48 BUN/Creatinine Ratio 24.3 H (10-20) Glucose 79 (70-99(Fasting)) mg/dl Calcium 8.7 (8.6-10.3) mg/dl Total Bilirubin 1.1 H (0.2-1.0) mg/dl AST 39 (13-39) U/L ALT 24 (7-52) U/L Alkaline Phosphatase 94 (34-104) U/L Total Protein 6.3 (6.0-8.3) gm/dl Albumin 3.6 (3.4-5.0) gm/dl Globulin 2.7 (2.5-4.0) gm/dl Albumin/Globulin Ratio 1.3 (0.9-2)
[2025-02-20 12:13] LABS: Hematocrit (blood only) 24.1 % (42.0-52.0)
[2025-02-20 15:15] VITALS: BP 125/68; PULSE 69; TEMP 97.4; O2SAT 98
--- NOTE | 2025-02-20 15:33 | Discharge Summary ---
Date of Service February 20, 2025 Admission HPI Per Admitting Provider The patient is a 85-year-old male with a past medical history of dementia, vitamin B12 deficiency, atrial fibrillation on Eliquis, CHF, constipation who presents to the ED on 02/18/2025 s/p fall. Patient is a poor historian but reports tripping over something this morning. He is from a dementia unit and the staff found him face down on the floor. Unknown period of time. Patient denies any loss of consciousness. On arrival to the ED, patient had a scalp laceration that was sutured in the ER, had some excess bleeding which has now improved. He was also found to be in rapid A-fib in the 120s intermittently. On exam, the patient denies any chest pain/shortness of breath. Denies any recent nausea/vomiting/diarrhea. Denies any abdominal pain. Reports his pain is controlled. On arrival to the ED, labs are remarkable for hemoglobin 8.6, BUN 33, creatinine 1.5baseline, total bilirubin 1.1, AST 67, alk phos 109. Admission Exam Per Admitting Provider Constitutional: WD/WN, vitals as above Eyes: PERRL, conjunctivae normal, anicteric sclerae (facial laceration, sutured, no active bleeding; lip abrasion ) ENMT: external ear and nose normal, oropharynx normal (facial laceration, sutured, no active bleeding; lip abrasion ) Neck: trachea midline, no thyromegaly Respiratory: normal respiratory effort, lungs clear to auscultation Cardiovascular: RRR, no murmur, no edema (+1 LE edema pitting ) Gastrointestinal (Abdomen): normal bowel sounds, soft, nontender, no hepatosplenomegaly Musculoskeletal: no cyanosis or clubbing, extremities motor strength 5/5 Skin: no rashes, warm and dry Neurologic: PERRL, EOMI, accommodation nl, no face palsy, no dysarthria Lymphatic: no cervical or axillary lymphadenopathy Principal Diagnosis mechanical fall/anemia Discharge Exam Neuro: AAOx2, PERRLA, no aphagia, memory changes, CNII-XII grossly intact HEENT: head normocephalic, moist mucus membranes CV: S1/S2, (-) M/G/R, (-) edema, cap refill < 3 seconds Resp: Lungs CTA in all peña. On RA GI: Abdomen S/NT/ND, Ax4 bowel sounds, (-) CVA tenderness Musculoskeletal: 5/5 B/L UE strength, 5/5 B/L LE strength. No gait disturbance Skin: (-) rashes , (-) erythema. Psych: euthymic mood Discharge Data Allergies Allergy/AdvReac Type Severity Reaction Status Date / Time chlorhexidine Allergy Unknown Verified 02/18/25 09:06 Consultations 02/18/25 09:09 Consult Orthopedic Surgery Routine 02/18/25 10:27 Consult Orthopedic Spine Surgery Routine Ordered Studies CXR: 02/18/25: FINDINGS: A small pleural based radio-opacity seen near right cotophrenic angle. The lungs are clear and well-expanded with no pulmonary infiltrate or pleural effusion. The cardiomediastinal silhouette is within normal limits. No acute osseous abnormality. IMPRESSION: 1. No acute cardiopulmonary disease. 2. A small pleural based radio-opacity seen near right cotophrenic angle. Possible pleural nodule vs small empyema vs soft tissue overlap. 02/18/25: Hand x-ray: IMPRESSION: 1. Age indeterminate fracture of traepzium bone with sclerosis. 2. A small lytic lesion in proximal end of metacarpal bone, likely degenerative subchondral cyst. 02/18/25: Shoulder X-ray: FINDINGS: There is no evidence of acute fracture, dislocation or osseous lesion. The acromioclavicular joint space is preserved. The glenohumeral joint space is preserved. The adjacent soft tissues appear unremarkable, with no evidence of joint effusion. IMPRESSION: 1. No acute osseous or soft tissue abnormality. 02/18/25: Cervical Spine CT: IMPRESSION: 1.No acute fracture or subluxation in the cervical spine. 2.Cervical spondylosis. 02/18/25: Face CT: IMPRESSION: 1. No acute facial fractures. 2. Mild left maxillary sinusitis. 02/18/25: Head CT FINDINGS: There is cerebral atrophy. No evidence of space occupying lesion, hemorrhage, edema, mass effect, midline shift, extra axial collection, or hydrocephalus is noted. Basal cisterns are symmetric and normal in size and configuration. There are scattered periventricular hypodensities as can be seen with chronic microvascular ischemic changes. The gates-white matter differentiation is preserved. Small retention cyst is noted in left maxillary sinus. Rest of paranasal sinuses and mastoid air cells are well aerated. Orbital contents are within normal limits. Bony structures are intact. IMPRESSION: 1. No evidence of acute intracranial abnormality is demonstrated. 2. Chronic microvascular ischemic changes. 3. Cerebral atrophy. 02/19/25: Chest CT: IMPRESSION: 1. Cardiomegaly with suggestion of mild interstitial pulmonary edema. 2. Trace pleural effusions with mild right basilar subsegmental atelectasis. 3. Mild T12 compression deformity without retropulsion, likely. 4. Acute mildly comminuted nondisplaced fractures of the left T12 transverse process. 5. Nondisplaced subacute to chronic appearing fracture of the posterior left 10th rib. 02/19/25: [facility] X-ray: FINDINGS: Osteoarthritis of the shoulder and elbow. No acute fracture, dislocation or opaque foreign body. Mild lateral shoulder soft tissue swelling. IMPRESSION: No acute fracture or dislocation Hospital Course (1) Thoracic compression fracture: (2) Paroxysmal A-fib: (3) Anemia: (4) Fall: (5) Hand pain, left: (6) Left shoulder strain: (7) Complex laceration of scalp: Plan Mr. Rios is a 85-year-old male with a past medical history of dementia, vitamin B12 deficiency, atrial fibrillation on Eliquis, CHF, constipation who presents to the ED on 02/18/2025 s/p mechanical fall. Patient is a poor historian but reports tripping over something. He is from a dementia unit and the staff found him face down on the floor for an unknown period of time. Patient denies any loss of consciousness. On arrival to the ED, patient had a scalp laceration that was sutured in the ER, had some excess bleeding which has now improved. He was also found to be in rapid A-fib in the 120s intermittently. His labs were remarkable for hemoglobin 8.6, BUN 33, creatinine 1.5baseline, total bilirubin 1.1, AST 67, alk phos 109. A Chest CT identified mild interstitial pulmonary edema, an acute mildly comminuted nondisplaced fracture of the left T12 and a non displaced subacute to chronic fracture of the posterior left 10th rib. 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 Short course of anti-inflammatory alternating with Tylenol as needed for pain. Thumb spica brace indicates that they would like to follow up as an outpatient in two weeks. Today, he was identified to have acute conjunctivitis and was started on Ciprofloaxcin eye drops to continue at discharge. All details were discussed with his son, Kentrell, over the phone and he was deemed stable for discharge. Total Time Total Time Spent Total Time Spent (In Minutes): I spent a total of 48 minutes coordinating, documenting, and providing care for this patient excluding time spent inthe performance of separately billed services or time spent by another provider/QHP. Discharge Plan Discharge Items Patient Disposition: Transfer Snf Fac Reason For Visit: Fall Discharge Diagnosis: mechanical fall Condition on Discharge: Fair Activity: Per Instructions section Weightbearing: Full weightbearing Non-emergency contact: Primary Care Provider and Specialist Call non-emergency contact if: you have any medication questions and your pain is worsening Follow-up/Referrals: Alexander Mares [Primary Care Provider] - León Alatorre PA [Physician Track Moving Machine Operator] - 03/07/25 1:45 pm Diet: Heart Healthy Addtl Attending Provider Instructions: Mr. Rios is a 85-year-old male with a past medical history of dementia, vitamin B12 deficiency, atrial fibrillation on Eliquis, CHF, constipation who presents to the ED on 02/18/2025 s/p mechanical fall. Patient is a poor historian but reports tripping over something. He is from a dementia unit and the staff found him face down on the floor for an unknown period of time. Patient denies any loss of consciousness. On arrival to the ED, patient had a scalp laceration that was sutured in the ER, had some excess bleeding which has now improved. He was also found to be in rapid A-fib in the 120s intermittently. His labs were remarkable for hemoglobin 8.6, BUN 33, creatinine 1.5baseline, total bilirubin 1.1, AST 67, alk phos 109. A Chest CT identified mild interstitial pulmonary edema, an acute mildly comminuted nondisplaced fracture of the left T12 and a non displaced subacute to chronic fracture of the posterior left 10th rib. 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 Short course of anti-inflammatory alternating with Tylenol as needed for pain. Thumb spica brace indicates that they would like to follow up as an outpatient in two weeks. Today, he was identified to have acute conjunctivitis and was started on Ciprofl oaxcin eye drops to continue at discharge. All details were discussed with his son, Kentrell, over the phone. MEDICATION/WOUND CHANGES: *Ciprofloxacin (Ciloxan) 0.3% opthl 2 drops left eye twice daily until 03/01. *Please check a CBC on 02/22/25 to monitor patients hemoglobin. He has chronic anemia and want to ensure this has stabilized prior to restarting his Eliquis after his fall. His Hgb has been in the 8.0-8.9 range. After deemed continued to have a stable Hgb, restart Eliquis. *Please remove sutures on head in 10 days on 03/01 SUMMARY OF TEST RESULTS: CXR: 02/18/25: FINDINGS: A small pleural based radio-opacity seen near right cotophrenic angle. The lungs are clear and well-expanded with no pulmonary infiltrate or pleural effusion. The cardiomediastinal silhouette is within normal limits. No acute osseous abnormality. IMPRESSION: 1. No acute cardiopulmonary disease. 2. A small pleural based radio-opacity seen near right cotophrenic angle. Possible pleural nodule vs small empyema vs soft tissue overlap. 02/18/25: Hand x-ray: IMPRESSION: 1. Age indeterminate fracture of traepzium bone with sclerosis. 2. A small lytic lesion in proximal end of metacarpal bone, likely degenerative subchondral cyst. 02/18/25: Shoulder X-ray: FINDINGS: There is no evidence of acute fracture, dislocation or osseous lesion. The acromioclavicular joint space is preserved. The glenohumeral joint space is preserved. The adjacent soft tissues appear unremarkable, with no evidence of joint effusion. IMPRESSION: 1. No acute osseous or soft tissue abnormality. Cervical Spine CT: IMPRESSION: 1.No acute fracture or subluxation in the cervical spine. 2.Cervical spondylosis. 02/18/25: Face CT: IMPRESSION: 1. No acute facial fractures. 2. Mild left maxillary sinusitis. 02/18/25: Head CT FINDINGS: There is cerebral atrophy. No evidence of space occupying lesion, hemorrhage, edema, mass effect, midline shift, extra axial collection, or hydrocephalus is noted. Basal cisterns are symmetric and normal in size and configuration. There are scattered periventricular hypodensities as can be seen with chronic microvascular ischemic changes. The gates-white matter differentiation is preserved. Small retention cyst is noted in left maxillary sinus. Rest of paranasal sinuses and mastoid air cells are well aerated. Orbital contents are within normal limits. Bony structures are intact. IMPRESSION: 1. No evidence of acute intracranial abnormality is demonstrated. 2. Chronic microvascular ischemic changes. 3. Cerebral atrophy. 02/18/25: Chest CT: IMPRESSION: 1. Cardiomegaly with suggestion of mild interstitial pulmonary edema. 2. Trace pleural effusions with mild right basilar subsegmental atelectasis. 3. Mild T12 compression deformity without retropulsion, likely. 4. Acute mildly comminuted nondisplaced fractures of the left T12 transverse process. 5. Nondisplaced subacute to chronic appearing fracture of the posterior left 10th rib. 02/19: [facility] X-ray: FINDINGS: Osteoarthritis of the shoulder and elbow. No acute fracture, dislocation or opaque foreign body. Mild lateral shoulder soft tissue swelling. IMPRESSION: No acute fracture or dislocation RECOMMENDATIONS FOR FOLLOW-UP: 1. It is recommended that he follows up with Orthopedics on March 07 at 1:45 PM at [facility] as outlined above. OTHER INSTRUCTIONS: Seek medical attention if you have: * temperature above 101 * chest pain or trouble breathing * abdominal pain, nausea, vomiting * diarrhea, dark stools or bloody stools * any unanswered questions or concerns Call 911 if symptoms are severe. Please take good care of yourself. It has been a pleasure taking care of you. Please take care of yourself. If you have any questions regarding your recent hospitalization please contact [facility] and request saravanan Thompsonist @ [phone]. Add Powerplant Operator Provider Instructions: Orthopedic Discharge Instructions: Conservative management at this time Thumb spica brace to be worn at all times except for hygiene and therapy purposes PT/OT - May do gentle range of motion of hand as tolerated No heavy lifting with left hand Ice PRN Pain control with PO medications per your primary service Follow up at [facility] on 03/07/25 @ 2:00 with 1:45 arrival with León Liang PA-C Pending Studies at Discharge: No Stand-Alone Forms: My [facility] Skilled Items Patient informed of condition?: Yes DNR: No Discharge Level of Care: Skilled Communicable Disease: No Discharge Prognosis: Stable Lines: None Urinary Catheter: No Medications and DC Order Prescriptions: New olanzapine 5 mg Tablet 5 mg PO HS Qty: 7 0RF ciprofloxacin HCl 0.3 % Drops 2 drp ophthalmic (eye) BID Qty: 5 0RF lidocaine 5 % Adhesive Patch,Medicated 1 patch transdermal QAM Qty: 15 0RF furosemide 20 mg Tablet 20 mg PO QAM Qty: 14 0RF Continued quetiapine [Seroquel] 25 mg Tablet 25 mg PO BIDWMEAL sennosides [senna] 8.6 mg Tablet 8.6 mg PO BID hydrocortisone-pramoxine [Analpram-HC] 2.5-1 % Cream 1 applic SC BID trazodone 50 mg Tablet 50 mg PO HS quetiapine [Seroquel] 200 mg Tablet 200 mg PO HS olanzapine 5 mg Tablet 5 mg PO HS cyanocobalamin (vitamin B-12) [Vitamin B-12] 1,000 mcg Tablet 1,000 mcg PO QAM potassium chloride 10 mEq Tablet Extended Release 10 meq PO BID aspirin 81 mg Tablet,Delayed Release (Dr/Ec) 81 mg PO QAM acetaminophen 650 mg Tablet Extended Release 650 mg PO Q4H MDD 24gm/24hrs PRN (Reason: Pain) citalopram [Celexa] 20 mg Tablet 20 mg PO QAM divalproex 125 mg Tablet,Delayed Release (Dr/Ec) 250 mg PO BID folic acid 1 mg Tablet 1 mg PO QAM gabapentin 100 mg Capsule 100 mg PO BID sodium chloride 0.65 % Aerosol,[place] 1 spray intranasal Q6H PRN (Reason: Nasal Congestion) metoprolol tartrate 25 mg Tablet 25 mg PO QAM Rx Instructions: Hold for SBP <110 and pulse <60 cholecalciferol (vitamin D3) [Vitamin D3] 25 mcg (1,000 unit) Tablet 25 mcg PO QAM diclofenac sodium 1 % Gel 2 g TOPICAL Q8H PRN (Reason: Pain) Rx Instructions: apply to single elbow, wrist or hand; for hand includes palm/fingers/back of hand cranberry 450 mg Tablet 450 mg PO QAM Rx Instructions: administer with meals magnesium oxide 400 mg magnesium Tablet 400 mg PO BID latanoprost 0.005 % Drops, Emulsion 1 drp ophthalmic (eye) PM PreserVision AREDS 2 Plus MV 200 mcg-15 mcg- 5 mg-1 mg Capsule 1 cap PO BID Held Eliquis 5 mg Tablet 5 mg PO BID Hold Instructions: Resume on 02/22/25. Please confirm stable Hgb prior to restarting Eliquis Discontinued magnesium hydroxide [Milk of Magnesia] 400 mg/5 mL Suspension 2,400 mg PO QAM PRN (Reason: Constipation) Rx Instructions: If no bowel movement, administer 30ml of Milk of Magnesia on the morning of the third day. bisacodyl [Dulcolax (bisacodyl)] 10 mg Suppository 10 mg SC PM PRN (Reason: Constipation) Rx Instructions: If no BM Dulcolax suppository in the evening of the third day with no BM. Enema 19-7 gram/118 mL Enema 118 ml SC QAM PRN (Reason: Constipation) Rx Instructions: Administer enema on the morning of the 4th day without a BM. If no results from enema, notify MD furosemide [Lasix] 20 mg Tablet 60 mg PO QAM polyethylene glycol 3350 [Miralax] 17 gram/dose Powder 17 g PO BID Rx Instructions: Start Date 02/17/25 x3 day supply Discharge Orders: Discharge Order (Routine); Ordered 02/20/25 Ordered By: Nafisa Del Cid Admission Data Admit Date/Time: 02/18/25 08:55 Attending Provider: Melvin Lindquist Admit Provider: Melvin Lindquist Primary Care Provider: Alexander Mares Other Providers: Suzan,; Tima Sanchez; Hector Parker Other Interventions: Discharge Summary Assessment (RN) Last Done: 02/20/25 08:35 Supervising Physician Co-Signing Physician Notes Patient seen and examined at bedside as a follow-up for fall and scalp laceration. His hemoglobin has been stable, repeat hemoglobin in next few days to ensure H&H stability before resuming home Eliquis. Patient's suture needs to be taken out in about 7 days time. Patient to follow-up with orthopedics on discharge. Patient is hemodynamically stable. I have seen and examined the patient and have discussed the case with the provider above. I agree with the assessment and plan as stated. Total time spent independently: 15 minutes
[2025-02-20] MEDS ORDERED: CIPROFLOXACIN HCL 0.3% OP SOLN 2.5 ML BTL OP SCH (21:00)
== END 2025-02-20 16:00 | DRG 552 ==
LOC: ED 05:26 → 2S 08:55 → 3W 02-19 15:57